=== PATIENT | male | born 1950 | race Caucasian/White ===

== ENCOUNTER 2021-06-25 07:36 | Outpatient (CLI) | payer OTHER, SELFPAY ==
--- NOTE | 2021-06-25 09:26 | ONC CON_ITS ---
Dr. Gonsales New Patient Note Patient: Darian Betancourt Unit #: [id number]: 1950 Dicatated By: Darrel Gonsales M.D.Date of Visit: Jun 25, 2021 Onc MED New Patient/Consult Referring Physician: Duncan Landin Chief Complaint: Lung cancer. 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 He has been in good general health. [facility] In February 2021 had been found on screening chest CT to have a right middle lobe lung mass. That particular report is not available to me at this time. His further evaluation with PET/CT on 03/25/2021 showed an FDG avid nodule in the middle lobe of the right lung measuring 9.8 mm, SUV 4.9, consistent with primary lung malignancy. Additional nodules in the left lower lobe measuring 4.7 mm and 7.3 mm had minor FDG activity. There was no mediastinal or hilar adenopathy noted. There was evidence of emphysema. He was noted to have multinodular goiter with mild FDG activity within a right thyroid nodule. The prostate was noted to be enlarged, measuring 4.9 x 5.4 cm. There were no other abnormal findings. On 04/04/[address]-guided biopsy of the right middle lobe nodule. The procedure was complicated by pneumothorax, requiring temporary placement of a pleural drainage catheter. 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 By IHC the tumor cells were positive for CAM 5.2, CK7, TTF-1, and synaptophysin. They were negative for NKX3.1. He is seen here now for further management of the lung cancer, as he had opted not to [facility]. He has been feeling good generally. He has good energy and has good activity tolerance for 4 to 5 hours. ECOG score is 1. His appetite is good. He had significant weight loss when he started the keto diet for the diabetes. He lost from 230 pounds to as low as 180 pounds, but he is now regained about 10 of that. He does not have fever or night sweats. He has just occasional cough. He says his breathing is good. He does not complain of shortness of breath, and he has not had chest pain or hemoptysis. He has no GI/ complaints other than his bowels tend to be a little slow. He has no significant joint or bone pain. He does not complain of headache or dizziness, and he has no focal neurologic symptoms. Past Medical History: He has type II diabetes, diet controlled, and he has CT evidence of COPD. Past Surgical History: He underwent CT guided biopsy of the right lung on 04/04/2021. His other surgical/procedural history has been limited to excision of sebaceous cysts. Medications: A Thru Z Advanced Adult 1 Tablet Oral daily, Cholecalciferol 1 Tablet (of 125 mcg ) Capsule Oral daily, Cinnamon 4 (500 mg) Capsule Oral daily, Fish Oil Extra Strength 1 Tablet (of 2200 mg) Capsule Oral daily, Selenium 1 Tablet (of 200 mcg) Capsule Oral daily, Vitamin C 1 Tablet (of 500 mg) Capsule Oral daily, Vitamin E 1 Tablet (of 200 Unit(s)) Oral daily, Zinc 1 Tablet (of 50 mg) Oral daily Allergies: No Known Allergies. Social History: Mr. Betancourt is . 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 He has a history of smoking for 33 years up to a maximum of 3 packs of cigarettes daily. He quit smoking cigarettes in 1997. He started smoking a pipe 2 or 3 years later. He had at least moderate to heavy alcohol use while he was in the [employer]. He cut down alcohol use around 1988. He currently does not drink any alcohol. 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 Family History: Father at 95 of old age. Mother of colon cancer at age 86. She also had diabetes. A brother of lung cancer at age 63. Two sisters are still living. A maternal aunt had breast cancer and his paternal grandfather had throat cancer. Review Of Symptoms: Constitutional - He has pretty good energy and he has good activity tolerance for 4 to 5 hours. He has good appetite. He had significant weight loss when he went on a keto diet for his diabetes. His weight dropped from 235 pounds to as low as 180 pounds, but he has regained about 10 of that. He does not have fever or night sweats. ECOG score is 1, Eyes - No change in vision, ENMT - He has hearing loss and tinnitus. He has chronic sinus drainage. No mouth sores. No sore throat or difficulty swallowing, Hematologic/Lymphatic - Recently has been bruising easily, Respiratory - He does not complain of shortness of breath, but he does have cough occasionally. No pleuritic pain or hemoptysis, Cardiovascular - No angina pain. No palpitations, Gastrointestinal - No nausea or vomiting. No heartburn or acid reflux. No diarrhea or constipation. No blood in the stool or black stools, Genitourinary (M) - No dysuria or hematuria. No urinary frequency. No urgency or incontinence, Musculoskeletal - No joint or bone pain, Integumentary - No skin rash or other skin changes, Neurologic - No headache or dizziness. No numbness or tingling. No other focal neurologic symptoms, Psychiatric - No anxiety or depression. No insomnia. Vital Signs: Performed on Jun 25, 2021 08:32: 0, 0, 23.52, 2.18 sq.m, 76 in, 96 %, 56 /min (LOW), 18 /min, 111/66 mm(hg), 98.6 F, and 193.2 lbs (HIGH). Physical Examination: Constitutional - He looks good generally, Eyes - Sclerae nonicteric. Conjunctivae clear, ENMT - No lesions noted in the oral cavity, Neck - No mass or thyromegaly, Hematologic/Lymphatic - No cervical, clavicular, or axillary adenopathy, Respiratory - Lungs are clear with slightly diminished air movement bilaterally, Cardiovascular - Heart rhythm is regular. There is no murmur, gallop, or rub noted, Abdomen - Soft and non-tender. Liver and spleen are not enlarged. There is no abdominal mass or ascites noted and there is no inguinal adenopathy, Back/Spine - No spine or CVA tenderness noted, Extremities - No edema. He has good dorsalis pedis pulses bilaterally, Integumentary - No rashes. No suspicious skin lesions noted, Neurologic - No focal neurologic deficits noted. Problem List: 1. Non-small cell carcinoma (large cell neuroendocrine carcinoma) involving the middle lobe of the right lung. By clinical evaluation his disease appears to be stage IA (T1a, N0, M0). 2. Type 2 diabetes, diet controlled. 3. He has CT evidence of COPD. 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 He first had CT evidence of a right middle lobe pulmonary nodule in February 2021. The diagnosis was confirmed by CT directed biopsy on 04/04/2021. By PET/CT, his disease appears to be stage IA (T1a, N0, M0). As yet, he has not had any treatment. The PET/CT findings and pathology results reviewed with the patient. We discussed the clinical implications. He has non-small cell lung cancer which appears to be localized and potentially treatable with either surgery or SBRT. Given the interval from his diagnosis and with his staging PET/CT showing small pulmonary nodules in the left lung, I am going to repeat a diagnostic chest CT. If he still appears to have localized disease we can proceed then with definitive treatment. Signed By: Darrel Gonsales M.D. <<Signature on File>>
== END 2021-06-25 07:37 | disposition home or self-care (01) ==
PROVIDERS: PCP Family Medicine; Visit Provider Internal Medicine Hematology & Oncology
DX: C7A.8 Other malignant neuroendocrine tumors (principal); E11.9 Type 2 diabetes mellitus without complications; J44.9 Chronic obstructive pulmonary disease, unspecified; Z79.899 Other long term (current) drug therapy
CPT/HCPCS: 99205

== ENCOUNTER 2021-06-28 10:50 | Outpatient (CLI) | payer OTHER, SELFPAY ==
--- NOTE | 2021-06-28 | CT_ITS ---
WS: [id number] CT CHEST TECHNIQUE: Contrast enhanced CT of the chest with coronal and sagittal reformatted images. CLINICAL INFORMATION: MALIGNANT NEOPLASM COMPARISON: PET CT March 25, 2021 DLP: [id number] scans at [facility] use at least one of these dose optimization techniques: automated e xposure control; mA and/or kV adjustment per patient size (includes targeted exams where dose is matc hed to clinical indication); or iterative reconstruction. FINDINGS: PET/CT report not available. FDG avid nodule on the prior PET/CT in the right middle lobe laterally is stable in appearance. This does not appear changed compared to the prior examination. Today this measures approximately 8.8 x 8 .2 mm. Additional partially calcified nodule in the left lower lobe posteriorly also appears unchange d measuring 7.5 mm. This demonstrates low-grade uptake on the prior PET/CT. Additional noncalcified n odule superior segment left lower lobe posterior medially measures 6 mm also unchanged. Enlarged right hilar lymph node measuring 12 mm appears new. No anterior mediastinal or left hilar ly mphadenopathy. No subcarinal lymphadenopathy. Normal caliber thoracic aorta. Proximal main pulmonary arteries are normal. Heterogeneous right lower lobe thyroid nodule extending into the mediastinum measuring 2.3 CM. This i s unchanged. CT/CT chest w con* [id number] IMPRESSION: 1. Right middle lobe nodule appears unchanged since the prior PET/CT measuring 8.8 x 8.2 mm. 2. 2 additional smaller nodules left lower lobe also unchanged. 3. Enlarged right hilar lymph node measuring 12 mm is new from the PET/CT. No anterior mediastinal lymphadenopathy. 4. Moderate chronic emphysematous changes. 5. Heterogeneous right lower lobe thyroid nodule extending into the mediastinu m measuring 2.3 CM. This is unchanged.
[2021-06-28 12:02] LABS: Blood Urea Nitrogen 16 mg/dL (8-23); Glomerular Filtration Rate 83.4 mL/min (90-130)
[2021-06-28] MEDS: iohexol 300 mg/mL 100 mL Btl IV (12:03)
== END 2021-06-28 10:51 | disposition home or self-care (01) ==
PROVIDERS: PCP Family Medicine; Visit Provider Internal Medicine Medical Oncology
DX: C34.2 Malignant neoplasm of middle lobe, bronchus or lung (principal)
CPT/HCPCS: 71260; 82565; 84520; Q9967

== ENCOUNTER → 2021-07-17 10:56 | Outpatient (BNVA) | payer OTHER, SELFPAY | PROVIDERS: PCP Family Medicine; Visit Provider Thoracic Surgery (Cardiothoracic Vascular Surgery) | DX: Z20.822 Contact with and (suspected) exposure to COVID-19 (principal) | CPT/HCPCS: 87635 ==

== ENCOUNTER 2021-07-23 07:47 | Outpatient (CLI) | payer OTHER, SELFPAY ==
--- NOTE | 2021-07-23 13:18 | PFTS_ITS ---
Date of Study:07/23/21 Date of Dictation: 07/24/2021 MECHANICS: Postbronchodilator forced vital capacity (FVC) is normal. Postbronchodilator forced expiratory volume in one second (FEV1) is moderately reduced. Postbronchodilator FEV1 2.83 L FEV1/FVC is reduced. There is significant response to bronchodilator. FLOW VOLUME LOOP: Scooping of expiratory limb suggestive of airway obstruction . LUNG VOLUMES: Total lung capacity (TLC) is normal. Residual volume (RV) is normal. DIFFUSING CAPACITY FOR CARBON MONOXIDE: Mildly reduced 76% . INTERPRETATION: The pulmonary function tests are consistent with moderate obstructive ventilatory disease with postbronchodilator FEV1 2.83 L. There is significant bronchodilator response. Lung volumes are normal. There is mild gas transfer defect. Clinical correlation recommended. [facility]
== END 2021-07-23 07:48 | disposition home or self-care (01) ==
LOC: RT 07:51
PROVIDERS: PCP Family Medicine; Visit Provider Thoracic Surgery (Cardiothoracic Vascular Surgery)
DX: J43.2 Centrilobular emphysema (principal)
CPT/HCPCS: 94060; 94726; 94729

== ENCOUNTER → 2021-08-07 08:40 | Outpatient (BNVA) | payer OTHER, SELFPAY | PROVIDERS: PCP Family Medicine; Visit Provider Thoracic Surgery (Cardiothoracic Vascular Surgery) | DX: Z20.822 Contact with and (suspected) exposure to COVID-19 (principal); R91.8 Other nonspecific abnormal finding of lung field | CPT/HCPCS: 87635 ==

== ENCOUNTER 2021-08-12 16:55 | Inpatient (IN) | payer OTHER, MEDICARE, SELFPAY ==
--- NOTE | 2021-08-07 09:47 | ECG_ITS ---
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 Measurements Intervals [place] Rate: 54 P: 63 MD: 175 QRS: 62 QRSD: 85 T: 61 QT: 408 QTc: 389 Interpretive Statements SINUS BRADYCARDIA SEPTAL MYOCARDIAL INFARCTION , OF INDETERMINATE AGE [40+ ms Q WAVE IN V1/V2] No previous ECG available for comparison Electronically Signed On 08-07-2021 20:48:55 NUTRITION ASSOCIATE by Emily Jacobs M.D. [id number]
[2021-08-07 09:53] LABS: Add Urine Microscopic? NO; Charge for UA Resulting for Rev
[2021-08-07 10:21] LABS: Bilirubin Urine Neg (Negative); Blood Urine Neg (Negative); Glucose Urine UA Norm (Normal); Ketones Urine Negative (Negative); Leukocyte Esterase Urine Negative (Negative); Nitrate Urine Negative (Negative); Protein Urine Neg (Negative); Urine Appearance Clear (CLEAR); Urine Color Straw (Yellow); Urobilinogen Urine Norm (Negative); pH Urine 5 (5-7)
[2021-08-07 10:25] VITALS: BMI 23.5
[2021-08-07 10:32] LABS: Basophils # 0.1 10^3/uL (0.0-0.1); Eosinophils # 0.1 10^3/uL (0.0-0.8); Eosinophils % 2.1 %; Hematocrit 46.8 % (42.0-52.0); Hemoglobin 15.3 g/dL (11.7-16.6); Lymphocytes # 1.6 10^3/uL (0.8-4.8); Lymphocytes % 27.4 %; Mean Corpuscular HGB Conc 32.7 g/dL (30.0-36.0); Mean Corpuscular Hemoglobin 28.4 pg (28.0-34.0); Mean Platelet Volume 9.7 fL (7.4-10.4); Monocytes # 0.4 10^3/uL (0.2-0.9); Monocytes % 7.6 %; Neutrophils # 3.54 10^3/uL (1.8-7.7); Neutrophils % 61.6 %; Nucleated Red Blood Cells % 0 %; Platelet Count 167 10^3/cmm (130-400); Red Blood Count 5.38 10^6/uL (4.1-5.3); Red Cell Distribution Width 12.9 % (12.1-15.1); White Blood Count 5.8 10^3/uL (4.0-10.0)
[2021-08-07 10:54] LABS: INR 1.02 (0.8-1.2)
[2021-08-07 10:58] LABS: Anion Gap 13.1 (5-19); Blood Urea Nitrogen 13 mg/dL (8-23); Calcium 9.3 mg/dL (8.5-10.5); Carbon Dioxide 27 mmol/L (22-29); Chloride 103 mmol/L (98-107); Glomerular Filtration Rate 111.5 mL/min (90-130); Glucose 100 mg/dL (65-115); Osmolality Calculated 288 mOsm/kg (285-295); Potassium 4.1 mmol/L (3.5-5.1); Sodium 139 mmol/L (136-145)
--- NOTE | 2021-08-07 11:00 | ANES.PREANE2 ---
Pre-Anesthetic Assessment Pre-Anesthetic Assessment: Height/Weight: Height 1.93 m Weight 87.543 kg Preop Diagnosis: Large cell neuroendocrine caricinoma Proposed Procedure: Operation Date: 08/12/21 11:10 Proposed Procedures p Lobectomy(Right) - Elian Ochoa MD Familial anesthetic complications: None (has had spinals only) Social: Social History: Tobacco (pipe) and No alcohol Exam: Pre-Anes Outpt Exam: alert, oriented x 3, clear to auscultation bilaterally and regular rate & rhythm Airway: Cervical ROM: WNL MP: 3 Dentition: False Pulmonary: Pulmonary: COPD Comments: lung cancer CV/HEM: Comments: runs 2.5 miles a day Metabolic: Metabolic: DM (diet controlled, now no longer has it) Anesthetic Plan: ASA status: 3 Anesthesia: General Other: a line + epidural Risk of > 500 ml blood loss (7ml/kg in children): No PFSH Anesthesia PFSH: Social History Alcohol intake: former service: Yes status: 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[employer] 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, 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 Current gender identity: Male Data Anesthesia CBC & Chem 7: 08/07/21 10:00 08/07/21 10:00 Other Labs: Laboratory Results - last 48 hr 08/07/21 08/07/21 08/07/21 09:05 10:00 10:00 WBC 5.8 RBC 5.38 H Hgb 15.3 Hct 46.8 MCV 87.0 MCH 28.4 MCHC 32.7 RDW 12.9 Plt Count 167 MPV 9.7 Neut % (Auto) 61.6 Lymph % (Auto) 27.4 Powell % (Auto) 7.6 Eos % (Auto) 2.1 Baso % (Auto) 1.0 Neut # (Auto) 3.54 Lymph # (Auto) 1.6 Powell # (Auto) 0.4 Eos # (Auto) 0.1 Baso # (Auto) 0.1 Nucleated RBC % (auto) 0 Nucleated RBCs # 0.0 PT 13.70 INR 1.02 Sodium Potassium Chloride Carbon Dioxide Anion Gap BUN Creatinine GFR Calculation Glucose Calculated Osmolality Calcium Urine Color Straw Urine Appearance Clear Urine pH 5 Ur Specific Bangs 1.010 Urine Protein Neg Urine Glucose (UA) Norm Urine Ketones Negative Urine Blood Neg Urine Nitrate Negative Urine Bilirubin Neg Urine Urobilinogen Norm Ur Leukocyte Esterase Negative 08/07/21 10:00 WBC RBC Hgb Hct MCV MCH MCHC RDW Plt Count MPV Neut % (Auto) Lymph % (Auto) Powell % (Auto) Eos % (Auto) Baso % (Auto) Neut # (Auto) Lymph # (Auto) Powell # (Auto) Eos # (Auto) Baso # (Auto) Nucleated RBC % (auto) Nucleated RBCs # PT INR Sodium 139 Potassium 4.1 Chloride 103 Carbon Dioxide 27 Anion Gap 13.1 BUN 13 Creatinine 0.7 GFR Calculation 111.5 Glucose 100 Calculated Osmolality 288 Calcium 9.3 Urine Color Urine Appearance Urine pH Ur Specific Bangs Urine Protein Urine Glucose (UA) Urine Ketones Urine Blood Urine Nitrate Urine Bilirubin Urine Urobilinogen Ur Leukocyte Esterase Cardiac Studies: No Data to Display
[2021-08-12] VITALS (28 sets, daily range): BP systolic 101–152; BP diastolic 48–88; PULSE 57–106; RESP 14–25; TEMP 36.4–36.6; O2SAT 94–100; BMI 22.4
[2021-08-12] MEDS: sodium chloride 0.9% 1,000 ML 30 ML IV (08:35)
--- NOTE | 2021-08-12 10:33 | P.ANESUD_ITS ---
Pre-Anesthetic Update Pre-Anesthetic Assessment: Date of Surgery/Procedure: 08/12/21 Preop Felisha gnosis: Right middle lobe non-small cell lung cancer Proposed Procedure: Operation Date: 08/12/21 10:10 Proposed Procedures p Lobectomy(Right) - Elian Ochoa MD Any changes to Pre-Anesthetic Assessment?: No Last Intake: Intake Last Liquid Date 08/11/21 Last Liquid Time 21:00 Last Solid Date 08/11/21 Last Solid Time 17:00 Labs Last 48hrs: Laboratory Results - last 48 hr 08/07/21 10:00 Blood Type A Positive Rho(D) Type Positive Antibody Screen Negative Crossmatch See Detail Vitals: Temperature 97.9 F 08/12/21 08:16 Temperature Source Temporal Artery S can 08/12/21 08:16 Pulse Rate 57 L 08/12/21 08:16 Pulse Rhythm 08/12/21 08:16 Pulse Strength 3+ Normal 08/12/21 08:16 Respiratory Rate 18 08/12/21 08:16 Blood Pressure 119/75 08/12/21 08:16 Blood Pressure Tasha n 89 08/12/21 08:16 Pulse Oximetry 97 08/12/21 08:16 Oxygen Delivery Me thod 08/12/21 08:16 Exam: Pre-Anes Outpt Exam: alert, oriented x 3, clear to auscultation bilaterally and regular rate & rhythm Cardiac Studies: No Data to Display
--- NOTE | 2021-08-12 10:42 | W.PM.OPSUD ---
Surgery/Procedure H&P Update DATE OF PROCEDURE: August 12, 2021 DATE H&P PERFORMED: 08/01/21 H&P UPDATE INFORMATION: I have reviewed H&P completed within last 30 days, I have examined patient prior to procedure and No changes to prior documentation PREOP DIAGNOSIS: Right middle lobe non-small cell lung cancer PLANNED PROCEDURE: Operation Date: 08/12/21 10:10 Proposed Procedures p Lobectomy(Right) - Elian Ochoa MD
[2021-08-12] MEDS: ceFAZolin 1,000 mg SDV 2000 MG IRRIGATION (13:11)
[2021-08-12] MEDS: ceFAZolin 1,000 mg SDV 2000 MG IVP (16:26)
--- NOTE | 2021-08-12 17:02 | XR_ITS ---
WS: [id number] Exam: XR chest 1V portable [id number] Date/Time of Exam: 08/12/2021 5:06 PM Reason For Exam: chest tube placement There are 2 right-sided chest tubes in place. Both end in the upper right pleural cavity. The right l eva is fully expanded. Surgical skin clips seen across the right chest. Cardiomediastinal silhouette is unremarkable. The left lung is fully inflated. No consolidating infiltrates. Minimal subcutaneous emphysema along the right rib cage. Recent appearing slightly displaced right sixth rib fracture. The re is coarsening of interstitial markings throughout both lungs that may represent chronic change. A length of opaque wire superimposes the upper left chest. Significance is undetermined. XR/XR chest 1V portable [id number] IMPRESSION: 1. 2 right-sided chest tubes in place both ending in the upper right pleural ca vity. No pneumothorax is demonstrated. Very small amount of subcutaneous emphys jazmin along the right rib cage. 2. Minimally displaced right sixth rib fracture. 3. Coarsening of interstitial markings noted bilaterally which may represent ch ronic change. No acute consolidating infiltrates are seen.
--- NOTE | 2021-08-12 17:38 | PM.OP ---
Operative Report Date of procedure: August 12, 2021 Pre-op Diagnosis: Right middle lobe non-small cell lung cancer Post-op diagnosis: same Procedure Done: Muscle-sparing right posterior lateral thoracotomy incision with right middle lobectomy Specimens removed/disposition: 1. Right middle lobe 2. Prominent enlarged right hilar lymph node 3.. Right posterior mediastinal right paraesophageal lymph node Anesthesia: General Estimated blood loss (mL): 200 Complications: None Condition: stable Disposition: ICU Brief History: 71-year-old gentleman with biopsy-proven non-small cell carcinoma right middle lobe now noted with increased 12 mm right hilar lymph node which was not noted previously. Given the interval from the original procedure and diagnosis to now, Dr. Gonsales felt that direct biopsy of this lymph node would be indicated to assist with management. Details of risk the procedure was rationale was carefully discussed with Mr. Betancourt. Appropriate consents have been reviewed and signed. Procedure: Thoracic epidural catheter was placed prior to entering the surgical suite. Mr. Betancourt underwent general endotracheal anesthesia with double-lumen endotracheal tube placed. Appropriate invasive lines were placed. The was placed in the left lateral decubitus position over axillary roll and protective padding. Is entire right chest was sterilely prepped and draped. A muscle-sparing limited right thoracotomy incision was made with cautery used to control bleeding. Latissimus muscle was divided. The anterior serratus muscle was retracted but not divided. The fifth intercostal space was entered. Moist laparotomy pads and the Finochietto retractor were placed. The chest was carefully opened. Right middle lobe lobe mass could be palpated. The pleura was opened circumferentially around the hilum. Hilar dissection was initiated anteriorly and superiorly. To between the right upper and middle lobe was completed utilizing automated stapler with securing strips. Fissure between middle lobe and lower lobe was divided using automated stapler. Pulmonary artery branches to the middle lobe were taken down and ligated. Proximal to the right middle lobe was carefully isolated, stapled, transected, and the bronchial stump oversewn. Of any arterial and venous branches were also isolated and secured. There was a very prominent hilar node as previously noted on most recent CT scan which was worrisome as it had not been present previously the time of his original screening and diagnosis. This lymph node was carefully dissected free off of the pulmonary artery with a small rent which was repaired with 4-0 Prolene suture. Specimen was collected and sent separately to pathology for permanent analysis. We then utilized the stapler to complete the fissure between the middle lobe and lower lobe. This allowed us to then remove the middle lobe with its associated easily palpable nodule. I placed adore along the parenchyma to allow for easier identification by our pathology colleagues. Not substantial adenopathy noted though sampling was performed along the paraesophageal region and was sent as a separate specimen as well. The entire chest was irrigated with large amounts of antibiotic solution. Right upper and lower lobes were reinflated easily. 1 area of air leak noted at the posterior aspect of the completed fissure between the middle lobe and upper lobe was initially oversewn and then separately oversewn again with felt and with the application of progel which helped control this leak. 28 [place] drain drains was placed over the diaphragm and out to the apex. These were connected to Pleur-evac suction. Retractor and sponges were removed. Sponge and needle count was correct. Chest wall was reapproximated with interrupted #1 Vicryl suture. There was a noted fracture of the sixth rib. Intercostal block with quarter percent Marcaine was then performed across the incision. The fascia was closed with running 0 Vicryl suture. The subcutaneous layer was closed with 2-0 Vicryl suture. Skin was reapproximated with surgical adore. Sterile dressing was applied. Patient was returned to the supine position and awakened from anesthesia. He was extubated. He was then transferred to the ICU. Family nursing service has been in contact with his daughter, who resides in [place]. Chest x-ray obtained in the operating room suite reveals good lung expansion without substantial infiltrates or fluid collections. He does have a modest air leak.
--- NOTE | 2021-08-12 17:42 | ANES.PROC ---
Anesthesia Procedures Procedure/Date: 08/12/21 Epidural: Time Out Performed: Yes Consents Signed: Procedure Consent Consent: requested by attending/covering physician, from patient, risks and benefits reviewed and patient agrees to proceed Thoracic Level: T9-T10 Epidural position: sitting Epidural procedure: sterile prep of area, 1% lidocaine to numb the area, 18 g needle, neg for paresthesia, test dose given, 1.5% xylocaine 1:200k epi, 0.2% Ropivacaine bolus ml, no systemic response, sterile dressing applied and 0.2% Ropiavacaine @ mls/hr (6) Additional Comments: AGATHA at 5cm, cath at 10cm
--- NOTE | 2021-08-12 17:43 | ANE.PACU2 ---
Inpatient post-anesthesia follow up: Airway intact: Yes Vital signs: Temperature 97.9 F Pulse Rate 57 Respiratory Rate 18 Blood Pressure 119/75 Pulse Oximetry 97 Oxygen Delivery Me thod Room Air Oxygen Flow Rate Fraction of Inspir ed Oxygen Hydration adequate: Yes Nausea and vomiting: No Pain level: 1 Additional Comments: Sedated to ICU, extubated, thoracic epidural appears to be working well
--- NOTE | 2021-08-12 17:47 | PC.NURSE ---
To ICU via bed at 1725, accompanied by OR staff and Dr. Ochoa. Patient sedated, sonorous respirations, chest tubes to suction without leaks. VSS, Epidural intact and working.
[2021-08-12] MEDS: morphine 4 mg/mL SDV 1 mL 2 MG IVP ×2 (18:11→19:30)
[2021-08-12] MEDS: lactated ringers 1,000 ML 100 ML IV (18:20)
[2021-08-13] VITALS (179 sets, daily range): BP systolic 71–122; BP diastolic 40–74; PULSE 62–98; RESP 12–27; TEMP 36.9–37.6; O2SAT 93–100
[2021-08-13] MEDS: ketorolac 30 mg/mL INJ IVP ×2 (05:14→20:45)
[2021-08-13] MEDS: lactated ringers 1,000 ML 100 ML IV ×2 (05:24→16:10)
--- NOTE | 2021-08-13 06:00 | XRR_ITS ---
PROCEDURE INFORMATION: Exam: XR Chest Exam date and time: 08/13/2021 6:00 AM Age: 71 years old Clinical indication: Dyspnea; Prior surgery; Surgery date: 3-7 days post-operative; Additional info: Pod #1 status post right middle lobectomy TECHNIQUE: Imaging protocol: XR of the chest. Views: 1 view. Total images: 1 COMPARISON: CR XR chest 1V portable [id number] 08/12/2021 5:11 PM FINDINGS: Tubes, catheters and devices: Two right-sided chest tubes unchanged in position. Lungs: Stable right pleuroparenchymal disease. Pleural spaces: No pneumothorax. Heart/Mediastinum: Unremarkable. No cardiomegaly. Bones/joints: Osseous structures are unchanged from the prior exam. Other findings: Stable postsurgical changes. XR/XR chest 1V portable [id number] IMPRESSION: Stable right pleuroparenchymal disease. Radiation Dose CTDIVOL = (mGy): DLP = (mGy-cm)
[2021-08-13 06:02] LABS: Basophils % 0.2 %; Hematocrit 31.9 % (42.0-52.0); Hemoglobin 10.4 g/dL (11.7-16.6); Lymphocytes # 0.9 10^3/uL (0.8-4.8); Lymphocytes % 9.7 %; Mean Corpuscular HGB Conc 32.6 g/dL (30.0-36.0); Mean Corpuscular Hemoglobin 28.7 pg (28.0-34.0); Mean Corpuscular Volume 87.9 fl (80-94); Mean Platelet Volume 10.1 fL (7.4-10.4); Neutrophils # 7.67 10^3/uL (1.8-7.7); Neutrophils % 79.7 %; Nucleated Red Blood Cells % 0 %; Platelet Count 130 10^3/cmm (130-400); Red Blood Count 3.63 10^6/uL (4.1-5.3); Red Cell Distribution Width 12.7 % (12.1-15.1); White Blood Count 9.6 10^3/uL (4.0-10.0)
--- NOTE | 2021-08-13 06:05 | PM.PN ---
Subjective Subjective: Interval history: Postop day #1 status post right middle lobectomy. Looks quite good this morning. In very good spirits. Modest air leak noted. Chest tube output has been 550 cc since surgery, 300 cc over the weight shifter. Hemoglobin 10.4 this morning. Vital signs are stable. Afebrile. Epidural catheter appears to be working quite well. Chemistries are still pending this morning. Chest x-ray remains clear. There is a small apical. I do note there were adhesions in the apex that had to be taken down with cautery and I suspect this is some bleeding from the apical wall. No substantial infiltrates or effusions noted. Vitals/I&O/Wt Last Vital Signs Temp 98.7 F 08/13/21 04:00 Pulse 70 08/13/21 04:00 Resp 14 08/13/21 04:00 BP 117/51 08/13/21 04:00 Pulse Ox 98 08/13/21 00:00 08/12/21 08/12/21 08/13/21 14:59 22:59 06:59 Intake Total 60 / 60 1160 / 1220 Output Total 1000 / 1000 750 / 1750 Balance 60 / 60 -1000 / -940 410 / -530 Weight last 48 hrs Weight 190 lb 2 oz Weight 184 lb 9 oz Physical Exam Resp: COMMON NORMALS: No use of accessory muscles and clear to auscultation bilaterally AUSCULTATION: clear to auscultation bilaterally OTHER: Fairly good inspiratory effort given this early since surgery. We do note a 6th rib fracture during thoracotomy. Cardio: COMMON NORMALS: regular rate, regular rhythm and S1 normal heart sound present RATE: regular rate RHYTHM: regular rhythm HEART SOUNDS: S1 normal heart sound present Extremity: COMMON NORMALS: no clubbing, cyanosis or edema Urinary Catheter Management^: Seymour Latex: Cath Placed During This Visit: yes Reason for Continuing Indwelling Catheter: Accurate Measurement of Urinary Output in Critically Ill Patients Urinary Catheter Date of Insertion: 08/12/21 Urinary Catheter Time of Insertion: 12:50 Data : 08/13/21 04:28 08/07/21 10:00 A&P Assessment and plan (1) Status post lobectomy of lung: POD #1 status post right middle lobectomy Plan: DC arterial line. Out of bed in chair. Pulmonary toilet with incentive spirometry ineffective coughing CBC, BMP, chest x-ray in a.m. Status: Acute Attestations Medical Necessity Statement*: Postop day #1 status post right middle lobectomy Time Spent in Patient Care: 16 - 35 minutes Coding Level of Care Code Acute Lead Clinical Research Coordinator for Chg Fwd Diagnoses Status post lobectomy of lung Z90.2
--- NOTE | 2021-08-13 06:33 | PC.NURSE ---
Chest tube output:360ml sanguineous for this shift, pain controlled with PRNs. Arterial line pulled this AM, no complications or excessive bleeding. Patient up to chair this AM, VSS, no signs of distress at this time.
[2021-08-13 06:34] LABS: Anion Gap 15.6 (5-19); Blood Urea Nitrogen 9 mg/dL (8-23); Calcium 6.9 mg/dL (8.5-10.5); Carbon Dioxide 19 mmol/L (22-29); Chloride 107 mmol/L (98-107); Glomerular Filtration Rate 164.4 mL/min (90-130); Glucose 113 mg/dL (65-115); Osmolality Calculated 285 mOsm/kg (285-295); Potassium 3.6 mmol/L (3.5-5.1); Sodium 138 mmol/L (136-145)
--- NOTE | 2021-08-13 08:23 | P.ANESPOST_ITS ---
Inpatient post-anesthesia follow up: Airway intact: Yes Vital signs: Temperature 98.7 F Pulse Rate 74 Respiratory Rate 21 Blood Pressure 108/60 Pulse Oximetry 96 Oxygen Delivery Me thod Nasal Cannula Oxygen Flow Rate 2 Fraction of Inspir ed Oxygen Hydration adequate: Yes Nausea and vomiting: No Pain level: 2 Mental status: Baseline Additional Comments: POD #1, up in chair eating breakfast, pain control adequate--no change encouraged HOUSEKEEPING AND LAUNDRY TEAM LEADER use.
[2021-08-13] MEDS: pantoprazole DR 40 mg Tablet PO (10:35)
[2021-08-13] MEDS: midazolam 1 mg/mL INJ 2 mL IVP (12:42)
--- NOTE | 2021-08-13 19:13 | PC.NURSE ---
Late note: At approximately 1230, patient was eating lunch and developed a partial airway obstruction. Still saturating in the mid 90%s and able to ventilate adequately, but he can feel food stuck in his throat, is dry heaving, and occasionally cpitting up large amounts of mucus with food mixed in. Per Dr Perales, nurse administered versed and glucagon (see mar), and reassured patient. Explained that since he is able to move air and is saturating well we will not make any major changes and see if the medications will help relax his airway and clear the obstruction. Patietn was about to clear obstruction about 10 minutes after administration of meds.
--- NOTE | 2021-08-13 19:17 | PC.NURSE ---
SHift summary: besides partial airway obstruction (see previous notes), Shift was uneventful Patient was up to a chair for about 6 hours of the day, and back to bed for the remaining 6 hours of the shift. Urine output for shift was 350mL, and appears to be increasing as most of the output occurred in the later half of the shift. Urine color, initially brown, has improved. Is now a clear orange. Total drainage form chest tube for day shift 08/13/2021 was 110mL and sanguineous. Chest tube insertion side dressings and thoracotomy dressings are clean an intact. No redness, drainage or excessive warmth noted. Tracheotomy incision has swelling above it, nurse alerted Dr Cho and marked boundaries of swelling with marker to track progress throughout stay.
--- NOTE | 2021-08-13 19:44 | PC.NURSE ---
Nurse's Note: Pt alert and oriented x4, moves all extremities and follows commands. Chest tube site C/D/I--tubes to DD(atrium). Small airleak noted in chesttube/Dr. rivas per dayshift. All vs and assessments as charted. Pt c/o right side pain @ 6/10. Reminded pt that epidural in place/educated on when to push button for pain medication. Pt currently resting with eyes closed; 02 on @ 0.5L per NC. No distress noted at this time. Will continue to monitor.
[2021-08-14] VITALS (53 sets, daily range): BP systolic 92–132; BP diastolic 51–80; PULSE 69–98; RESP 12–29; TEMP 36.7–37.4; O2SAT 88–99
[2021-08-14] MEDS: lactated ringers 1,000 ML 100 ML IV (02:23)
[2021-08-14 04:27] LABS: Basophils % 0.4 %; Eosinophils # 0.1 10^3/uL (0.0-0.8); Eosinophils % 0.7 %; Hematocrit 34.6 % (42.0-52.0); Hemoglobin 10.8 g/dL (11.7-16.6); Lymphocytes # 1.2 10^3/uL (0.8-4.8); Lymphocytes % 13.2 %; Mean Corpuscular HGB Conc 31.2 g/dL (30.0-36.0); Mean Corpuscular Hemoglobin 28.1 pg (28.0-34.0); Mean Corpuscular Volume 89.9 fl (80-94); Mean Platelet Volume 10.3 fL (7.4-10.4); Monocytes # 1.1 10^3/uL (0.2-0.9); Neutrophils # 6.72 10^3/uL (1.8-7.7); Neutrophils % 73.5 %; Nucleated Red Blood Cells % 0 %; Platelet Count 140 10^3/cmm (130-400); Red Blood Count 3.85 10^6/uL (4.1-5.3); Red Cell Distribution Width 12.7 % (12.1-15.1); White Blood Count 9.2 10^3/uL (4.0-10.0)
[2021-08-14 05:09] LABS: Anion Gap 15.9 (5-19); Blood Urea Nitrogen 16 mg/dL (8-23); Carbon Dioxide 23 mmol/L (22-29); Chloride 104 mmol/L (98-107); Glomerular Filtration Rate 95.6 mL/min (90-130); Glucose 137 mg/dL (65-115); Osmolality Calculated 291 mOsm/kg (285-295); Potassium 3.9 mmol/L (3.5-5.1); Sodium 139 mmol/L (136-145)
--- NOTE | 2021-08-14 06:00 | XR_ITS ---
WS: [id number] Exam: XR chest 1V portable [id number] Date/Time of Exam: 08/14/2021 5:27 AM Reason For Exam: POD #2 status post right middle lobectomy Comparison 08/13/2021. Probable tiny right apical pneumothorax noted. There are [address] on the right. They luis f th end in the upper right pleural cavity. Small amount of subcutaneous emphysema along the right uppe r rib cage. Left lung is clear and fully inflated. No consolidating infiltrates. No pleural effusions . Normal cardiomediastinal silhouette. Surgical skin clips along the lateral right chest. XR/XR chest 1V portable [id number] IMPRESSION: 1. Probable tiny right apical pneumothorax. This is estimated at less than 5%. 2. Otherwise stable postoperative changes of the right chest as detailed above. No other new finding.
[2021-08-14] MEDS: FUROsemide 10 mg/mL SDV 2mL 20 MG IVP (06:27)
--- NOTE | 2021-08-14 06:42 | P.PN_ITS ---
Subjective Subjective: Interval history: POD #2 status post right middle lobectomy. Vital signs are stable. Chest tube output 130 cc past 12 hours. Intake and output is up about 2 L. Hemoglobin is stable. Chest x-ray remains relatively clear chest about is still fairly sanguinous though beginning to lighten up. Moderate bout of chest wall discomfort. Small intermittent moderate air leak which has not worsened and may be slightly improved. Vitals/I&O/Wt Last Vital Signs Temp 98.4 F 08/13/21 22:00 Pulse 76 08/14/21 06:00 Resp 21 H 08/14/21 06:00 BP 132/67 08/14/21 06:00 Pulse Ox 96 08/14/21 06:00 08/13/21 08/13/21 08/14/21 14:59 22:59 06:59 Intake Total 460 / 460 1510 / 1970 1100 / 3070 Output Total 360 / 380 400 / 780 Balance 440 / 440 1150 / 1590 700 / 2290 Weight last 48 hrs Weight 190 lb 2 oz Weight 184 lb 9 oz Physical Exam Chest: COMMONS NORMALS: normal inspection of the chest and normal palpation of entire chest wall OTHER: Chest wall is stable. Surgical dressings and drains remain in good position. Resp: COMMON NORMALS: No retractions and No use of accessory muscles EFFORT & INSPECTION: Yes able to speak in complete sentences OTHER: Basilar crackles. Cardio: COMMON NORMALS: regular rate, S1 normal heart sound present, No murmurs present (Cardio) and No rub (Cardio) RATE: regular rate HEART SOUNDS: S1 normal heart sound present Extremity: OTHER: Trace to 1+ peripheral edema Urinary Catheter Management^: Seymour Latex: Cath Placed During This Visit: yes Reason for Continuing Indwelling Catheter: Acute Urinary Retention or Obst ruction Urinary Catheter Date of Insertion: 08/12/21 Urinary Catheter Time of Insertion: 12:50 Data : 08/14/21 03:34 08/14/21 03:34 A&P Assessment and plan (1) Status post lobectomy of lung: POD #2 status post right middle lobectomy Plan: DC IV fluids/saline lock. Lasix 20 mg IV now Will reassess for possible transfer to [facility] later today. I will leave chest tube to suction for now and consider transitioning to waterseal either later this evening or perhaps tomorrow Status: Acute Attestations Medical Necessity Statement*: POD #2 status post right middle lobectomy. Pathology pending. Time Spent in Patient Care: less than 15 minutes Coding Level of Care Code Acute Tubular Riveter for Gerardog Fwrodrigo Diagnoses Status post lobectomy of lung Z90.2
--- NOTE | 2021-08-14 07:43 | PC.NURSE ---
Report received, pt resting in bed. AAOx4. VSS. CTx2 to R side. air leak noted and MD aware. Sanguinous output noted to both CT's. Container full on 1 side. Atrium changed per protocol. Tolerated well. Denies any needs. pain pump in use, pt reeducated on the use of pump. Seymour cath draining freely to BSD. Will monitor.
[2021-08-14] MEDS: pantoprazole DR 40 mg Tablet PO (08:06)
--- NOTE | 2021-08-14 08:41 | PC.NURSE ---
Report given to Alden ROQUE.
--- NOTE | 2021-08-14 09:02 | PC.CHAP ---
Pastoral Care Encounter/Spiritual Assessment Type of Contact [] Declined production operator visit [] Patient/Family/Request visit [] Outpatient visit [] Follow-up visit [] Physician referral [] Code/Alert [x] Routine visit [] Staff referral [] Actively dying [] Patient sleeping [] Family support [] [] Out of room [] Palliative care [] [] Receiving care in room [] Pre-surgical visit [] Trauma [] Long length of stay [x] ICU visit [] Other: Relational/Emotional Strength [] Patient feels connected with others/family/visitors/staff [] Distress [] Loneliness/isolation [] Abandonment Spirituality of Patient [x] Person of Rubia [] Attends Mosque of their [place] [] Believes in Prayer [] Reads Bible or Moravian materials [] There are Spiritual issues to be addressed Trust Accounts Supervisor Interventions [x] Prayer [x] Active listening [x] Non-anxious presence [x] Spiritual/emotional support [] Crisis/trauma care [] Spiritual counseling [] Bereavement support [] Provided bereavement packet [] Provided Bible/devotional materials [] Provided toy/stuffed animal, coloring book to patient or family member [] Provided Communion [] Anointing/[place] [] Salvation [x] Completed spiritual assessment [] Other: Impact on Illness or Injury [] Angry [] Fearful [] Anxious [] Often cries [] Exhaustion [] Unable to work [] Unable to attend mormonism [] Unable to walk/stand [] Unable to read [] Unable to drive [] Unable to eat/drink [] Unable to sleep [] Unable to be with family [] Patient intubated [] Other: Summary patient feeling somewhat better.. feels weak Time spent with patient 5 min
--- NOTE | 2021-08-14 09:15 | PC.NURSE ---
Took report back on pt from Alden ROQUE.
--- NOTE | 2021-08-14 09:45 | PC.NUTR ---
Nutrition note: Pt triggered for assessment based upon BMI < 23 in age > 65 years, however additional weights entered and BMI now > 23. Will assess at 5D LOS or as needed per further nutrition risk.
[2021-08-14] MEDS: ondansetron 2 mg/ML SDV 2 mL 4 MG IVP (11:14)
[2021-08-14] MEDS: morphine 4 mg/mL SDV 1 mL 2 MG IVP ×2 (11:18→14:58)
--- NOTE | 2021-08-14 11:33 | PC.NURSE ---
[facility], became nauseous during tx, given zofran 4mgIVP per PRN orders. No major dump from CT's. Dressing to lobectomy site rolling up on bottom edge. Pt c/o pain 8/10. Morphine given per orders for breakthrough severe pain. Pt used STANDPIPE TENDER pump prior to with no relief. Will monitor. 1137 Pt states pain 2/10 after morphine. No n/v at this time.
--- NOTE | 2021-08-14 14:39 | PM.MISC ---
Miscellaneous Note Purpose of Documentation: Up in chair on afternoon rounds. Intermittent moderate air leak persist. Right chest wall discomfort mildly improved. In good spirits. Good diuresis following Lasix. We will continue chest tube to suction. Will plan for transfer to [facility] tomorrow if bed available. Continue pulmonary toilet and analgesic control. 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 Prominent hilar lymph node was positive.
--- NOTE | 2021-08-14 14:44 | ANE.PACU2 ---
Inpatient post-anesthesia follow up: Airway intact: Yes Vital signs: Temperature 99.3 F Pulse Rate 82 Respiratory Rate 16 Blood Pressure 107/59 Pulse Oximetry 98 Oxygen Delivery Me thod Nasal Cannula Oxygen Flow Rate 1 Fraction of Inspir ed Oxygen Hydration adequate: Yes Nausea and vomiting: No Pain level: 2 Mental status: Baseline Additional Comments: POD#2, reasonable pain control, continued air leak
--- NOTE | 2021-08-14 15:07 | PC.NURSE ---
Dressing to lobectomy incision site changed per MD order. Painted with betadine and covered with 2 island dressings so as not to get adhesive directly on incision site. Pt tolerated well. Site without s/s of infection noted. Will monitor
--- NOTE | 2021-08-14 17:48 | PC.NURSE ---
Shift Note Frequent safety and comfort rounds continue. Orders and/or nursing care completed as indicated. Patient monitored for response to intervention and treatment(s). Education provided includes treatment plan, medications, CT safety, and pain management. Pt verbalizes understanding. Pt up in chair since before lunch, tolerated well. CT's to suction. Small air leak still present. No other issues noted. Pain pump in use. Pt understands proper use. VSS. Will continue to monitor.
[2021-08-14] MEDS: guaiFENesin 100 mg/5 mL UDC 10 mL 200 MG PO (17:59)
[2021-08-15] VITALS (42 sets, daily range): BP systolic 97–140; BP diastolic 49–74; PULSE 60–85; RESP 12–23; TEMP 36.6–37.3; O2SAT 89–97
[2021-08-15] MEDS: morphine 4 mg/mL SDV 1 mL 2 MG IVP (01:07)
[2021-08-15] MEDS: ketorolac 30 mg/mL INJ IVP (04:38)
[2021-08-15] MEDS: guaiFENesin 100 mg/5 mL UDC 10 mL 200 MG PO ×3 (04:38→18:27)
[2021-08-15 05:42] LABS: Basophils % 0.5 %; Eosinophils # 0.2 10^3/uL (0.0-0.8); Eosinophils % 2.9 %; Hemoglobin 9.8 g/dL (11.7-16.6); Lymphocytes # 1.4 10^3/uL (0.8-4.8); Lymphocytes % 17.7 %; Mean Corpuscular HGB Conc 32.7 g/dL (30.0-36.0); Mean Corpuscular Hemoglobin 28.7 pg (28.0-34.0); Mean Platelet Volume 10.2 fL (7.4-10.4); Monocytes # 0.8 10^3/uL (0.2-0.9); Monocytes % 10.1 %; Neutrophils % 68.3 %; Nucleated Red Blood Cells % 0 %; Platelet Count 146 10^3/cmm (130-400); Red Blood Count 3.41 10^6/uL (4.1-5.3); Red Cell Distribution Width 12.4 % (12.1-15.1); White Blood Count 7.6 10^3/uL (4.0-10.0)
--- NOTE | 2021-08-15 06:00 | XR_ITS ---
WS: [id number] Exam: XR chest 1V portable [id number] Date/Time of Exam: 08/15/2021 4:18 AM Reason For Exam: POD#3 s/p lobectomy Comparison 08/14/2021. The lungs remain fully expanded. 2 right-sided chest tubes are in place. One tube ends in the superio r right pleural cavity and the second along the lateral lower right pleural cavity. At least one righ t rib fracture is seen. Left lung is clear. Normal cardiomediastinal silhouette. Additional wires and leads superimpose the chest. Subcutaneous emphysema along the right neck and shoulder region. Mild p laque atelectasis in the right lower lung zone. XR/XR chest 1V portable [id number] IMPRESSION: 1. The right lung remains fully inflated. No pneumothorax is seen. 2 right ches t tubes in place as detailed above. Diffuse plaque atelectasis in the right low er lung zone. 2. No consolidating infiltrates or other significant finding.
[2021-08-15 06:03] LABS: Anion Gap 12.1 (5-19); Blood Urea Nitrogen 18 mg/dL (8-23); Calcium 8.1 mg/dL (8.5-10.5); Carbon Dioxide 28 mmol/L (22-29); Chloride 103 mmol/L (98-107); Glomerular Filtration Rate 111.5 mL/min (90-130); Glucose 121 mg/dL (65-115); Osmolality Calculated 291 mOsm/kg (285-295); Potassium 4.1 mmol/L (3.5-5.1); Sodium 139 mmol/L (136-145)
--- NOTE | 2021-08-15 06:31 | PM.PN ---
Subjective Subjective: Interval history: Postop day #3 status post right middle lobectomy. 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 The prominent lymph nodes noted on the most recent CT scan was in the positive for malignancy. He has done well overnight. Less chest wall discomfort. Chest x-ray is stable remains clear. Chest tube output just under 300 cc. He still has an air leak though this is slowly improving. Vitals/I&O/Wt Last Vital Signs Temp 98.1 F 08/14/21 21:59 Pulse 85 08/15/21 04:30 Resp 17 08/15/21 04:30 BP 115/63 08/15/21 04:30 Pulse Ox 94 08/15/21 04:30 08/14/21 08/14/21 08/15/21 14:59 22:59 06:59 Intake Total 1230 / 1230 480 / 1710 220 / 1930 Output Total 1185 / 1185 979 / 2164 1075 / 3239 Balance 45 / 45 -499 / -454 -855 / -1309 Physical Exam Chest: COMMONS NORMALS: normal inspection of the chest and normal palpation of entire chest wall OTHER: Support lines remain in position. Surgical dressing clean and dry. Chest wall is stable. No subcutaneous emphysema. Resp: COMMON NORMALS: normal respiratory effort and clear to auscultation bilaterally AUSCULTATION: clear to auscultation bilaterally Cardio: COMMON NORMALS: regular rate and regular rhythm RATE: regular rate RHYTHM: regular rhythm Urinary Catheter Management^: Seymour Latex: Cath Placed During This Visit: yes Reason for Continuing Indwelling Catheter: Acute Urinary Retention or Obstruction Urinary Catheter Date of Insertion: 08/12/21 Urinary Catheter Time of Insertion: 12:50 Data : 08/15/21 04:48 08/15/21 04:48 A&P Assessment and plan (1) Status post lobectomy of lung: Postop day #3 status post right middle lobectomy. Residual air leak though slowly improving. Plan: Continue chest tube to suction. Increase activities and pulmonary toilet. May ambulate off of suction. Will plan to transfer to [facility] later today. Status: Acute Attestations Medical Necessity Statement*: POD #3 status post right middle lobectomy Time Spent in Patient Care: less than 15 minutes Coding Level of Care Code Acute Medical Accounts Receivable Specialist for Chg Fwd Diagnoses Status post lobectomy of lung Z90.2
--- NOTE | 2021-08-15 07:17 | PC.NURSE ---
Report received, assessment completed as charted. Pt AAOx4, lying in bed. Denies any needs at this time. C/O some pain to R chest and upper back r/t lobectomy. Dressing c/d/i. Pain pump infusing per orders. CT x 2 to R lateral chest wall to suction. Light red sangeuinous output noted. Small air leak detected, MD aware. No other issues noted. Will monitor.
[2021-08-15] MEDS: ondansetron 2 mg/ML SDV 2 mL 4 MG IVP (07:28)
[2021-08-15] MEDS: pantoprazole DR 40 mg Tablet PO (08:01)
--- NOTE | 2021-08-15 08:32 | P.ANESPOST_ITS ---
Inpatient post-anesthesia follow up: Airway intact: Yes Vital signs: Temperature 98.1 F Pulse Rate 79 Respiratory Rate 21 Blood Pressure 106/56 Pulse Oximetry 90 Oxygen Delivery Me thod Room Air Oxygen Flow Rate 1 Fraction of Inspir ed Oxygen Hydration adequate: Yes Nausea and vomiting: No Pain level: 2 Mental status: Baseline Additional Comments: POD#3, up in chair doing well, encouraged RESIDENT CARE COORDINATOR use--pain seems worse at night, continue same
--- NOTE | 2021-08-15 09:33 | PC.SOCIAL ---
IMM updated IMM updated with patient. Verbalized an understanding. Copy Pg 2 provided. Initialled, dated, timed, and placed in chart.
--- NOTE | 2021-08-15 17:46 | PC.NURSE ---
Shift Note Frequent safety and comfort rounds continue. Orders and/or nursing care completed as indicated. Patient monitored for response to intervention and treatment(s). Education provided includes treatment plan, room change and CT safety. Pt verbalizes understanding. Pt up to BSC at this time attempting to have BM. No issues noted. Pain pump infusing per orders. VSS. Pt to transfer to med surg shortly after shift change d/t staffing requirements. Will continue to monitor.
--- NOTE | 2021-08-15 19:50 | PC.NURSE ---
Transferred via wheelchair to [facility] [id number]. Report given to MYA Walden.
[2021-08-16] VITALS (13 sets, daily range): BP systolic 116–129; BP diastolic 65–75; PULSE 68–89; RESP 16–18; TEMP 36.6–37.2; O2SAT 92–95
[2021-08-16] MEDS: guaiFENesin 100 mg/5 mL UDC 10 mL 200 MG PO ×3 (01:42→10:15)
--- NOTE | 2021-08-16 06:00 | XR_ITS ---
WS: [id number] Exam: XR chest 1V portable [id number] Date/Time of Exam: 08/16/2021 6:11 AM Reason For Exam: Postop day #4 status post right middle lobectomy Comparison 08/15/2021. Small right apical pneumothorax noted on today's study. This is estimated at 5%. 2 right-sided chest tubes remain in place unchanged in position. Prominent right pulmonary hilum which may be due to tech nique. Mild diffuse infiltrate in the right lower lung zone. Surgical clips along the right chest. Le ft lung is clear and fully expanded. Normal cardiomediastinal structures. XR/XR chest 1V portable [id number] IMPRESSION: 1. Small right upper lobe pneumothorax estimated at 5%. Small amount of subcuta neous emphysema along the right shoulder and right rib cage 2. There are 2 thoracostomy tubes in the right pleural cavity unchanged in posi tion. 3. Prominent right pulmonary hilum which may be due to portable technique. 4. Mild interstitial infiltrate in the right lower lung zone improved.
[2021-08-16] MEDS: docusate sodium 100 mg Capsule PO (06:49)
[2021-08-16] MEDS: bisacodyl 5 mg Tablet PO (09:29)
[2021-08-16] MEDS: pantoprazole DR 40 mg Tablet PO (09:29)
--- NOTE | 2021-08-16 09:52 | P.PN_ITS ---
Subjective Subjective: Interval history: Postop day #4 status post right middle lobectomy. Mr. Betancourt's thoracotomy discomfort is much improved. Good use of incentive spirometry. Chest tube output 330 cc past 24 hours. He has a small remaining air leak though this has steadily improved. Chest x-ray is quite clear. Vitals/I&O/Wt Last Vital Signs Temp 97.9 F 08/16/21 07:28 Pulse 68 08/16/21 07:28 Resp 17 08/16/21 07:28 BP 123/69 08/16/21 07:28 Pulse Ox 93 08/16/21 07:28 08/15/21 08/16/21 08/16/21 22:59 06:59 14:59 Intake Total 700 / 1280 600 / 1880 220 / 220 Output Total 475 / 475 510 / 985 100 / 100 Balance 225 / 805 90 / 895 120 / 120 Physical Exam Resp: COMMON NORMALS: normal respiratory effort, No retractions, No use of ac cessory muscles and clear to auscultation bilaterally EFFORT & INSPECTION: Yes able to speak in complete sentences and Yes symmetric chest movement AUSCULTATION: clear to auscultation bilaterally Cardio: COMMON NORMALS: regular rate, regular rhythm, S1 normal heart sound present and No rub (Cardio) RATE: regular rate RHYTHM: regular rhythm HEART SOUNDS: S1 normal heart sound present Extremity: COMMON NORMALS: no clubbing, cyanosis or edema Urinary Catheter Management^: Seymour Latex: Cath Placed During This Visit: yes, but has since been removed by the nurse Reason for Continuing Indwelling Catheter: Decision to DC Catheter Urinary Catheter Date of Insertion: 08/12/21 Urinary Catheter Time of Insertion: 12:50 Date Urinary Catheter Removed: 08/15/21 Time Urinary Catheter Discontinued: 17:45 Data : 08/15/21 04:48 08/15/21 04:48 A&P Assessment and plan (1) Status post lobectomy of lung: Postop day #4 status post right middle lobectomy. Pathology returned squamous cell carcinoma nonkeratinizing. Plan: I will place chest tubes to waterseal. I believe the more dependent tube may be removed either later today or tomorrow as we observe for any further air leak while on waterseal. I ordered a chest x-ray for tomorrow morning. His epidural catheter remains in position and appears to be functioning well. Dr. Landin has been gracious enough to assume attending duties for Mr. Betancourt as I will be off service. Mr. Betancourt where. Dr. Landin has cared for him previously. At his current recovery rate I believe that the chest tube will probably be able to be removed in the next couple of days completely, hopefully with the first 2 being removed later today or tomorrow pending his evaluation for air leak while on waterseal. I greatly appreciate Dr. Landin's assistance and expertise. Status: Acute Attestations Medical Necessity Statement*: Status post right middle lobectomy for squamous cell carcinoma. Time Spent in Patient Care: 16 - 35 minutes Coding Level of Care Code Acute Technical Stenographer for g Fwrodrigo Diagnoses Status post lobectomy of lung Z90.2
--- NOTE | 2021-08-16 13:27 | PC.CHAP ---
Pastoral Care Encounter/Spiritual Assessment Type of Contact [] Declined bariatric physician visit [] Patient/Family/Request visit [] Outpatient visit [XX] Follow-up visit [] Physician referral [] Code/Alert [XX] Routine visit [] Staff referral [] Actively dying [] Patient sleeping [] Family support [] [] Out of room [] Palliative care [] [] Receiving care in room [] Pre-surgical visit [] Trauma [XX] Long length of stay [] ICU visit [] Other: Relational/Emotional Strength [XX] Patient feels connected with others/family/visitors/staff [] Distress [] Loneliness/isolation [] Abandonment Spirituality of Patient [XX] Person of Rub[place] [] Attends Yazidi of their [place] [XX] Believes in Prayer [] Reads Bible or Gnosticist materials [] There are Spiritual issues to be addressed Chart Reader Interventions [XX] Prayer [XX] Active listening [XX] Non-anxious presence [] Spiritual/emotional support [] Crisis/trauma care [] Spiritual counseling [] Bereavement support [] Provided bereavement packet [] Provided Bible/devotional materials [] Provided toy/stuffed animal, coloring book to patient or family member [] Provided Communion [] Anointing/[employer] [] Salvation [XX] Completed spiritual assessment [] Other: Impact on Illness or Injury [] Angry [] Fearful [] Anxious [] Often cries [] Exhaustion [] Unable to work [] Unable to attend buddhism [] Unable to walk/stand [] Unable to read [] Unable to drive [] Unable to eat/drink [] Unable to sleep [] Unable to be with family [] Patient intubated [] Other: Summary Patient stated he is feeling better but is still dealing with severe, painful coughing. Time spent with patient 7 minutes
--- NOTE | 2021-08-16 13:48 | ANE.PACU2 ---
Inpatient post-anesthesia follow up: Airway intact: Yes Vital signs: Temperature 97.9 F Pulse Rate 72 Respiratory Rate 16 Blood Pressure 128/75 Pulse Oximetry 95 Oxygen Delivery Me thod Room Air Oxygen Flow Rate 1 Fraction of Inspir ed Oxygen Hydration adequate: Yes Nausea and vomiting: No Pain level: 2 Mental status: Baseline Additional Comments: POD#4, doing well, moved to floor, would plan to remove epidural tomorrow if chest tubes removed.
[2021-08-16] MEDS: morphine 4 mg/mL SDV 1 mL 2 MG IVP (17:23)
[2021-08-17] VITALS (9 sets, daily range): BP systolic 109–153; BP diastolic 68–77; PULSE 70–94; RESP 16–18; TEMP 36.7–37.1; O2SAT 93–95
--- NOTE | 2021-08-17 06:00 | XRR_ITS ---
PROCEDURE INFORMATION: Exam: XR Chest Exam date and time: 08/17/2021 6:00 AM Age: 71 years old Clinical indication: Device placement; Other: Pod#5 S/P lobectomy; Chest tube to water seal; Prior surgery; Surgery date: Post-operative (0-2 days) TECHNIQUE: Imaging protocol: XR of the chest. Views: 1 view. COMPARISON: CR XR chest 1V portable [id number] 08/16/2021 6:13 AM FINDINGS: Tubes, catheters and devices: Thoracotomy tube right hemithorax inferiorly. Tiny apical pneumothorax. Stable. Lungs: No focal consolidation. Pleural spaces: See Tubes, catheters and devices finding. Heart/Mediastinum: Unremarkable. No cardiomegaly. Bones/joints: Unremarkable. XR/XR chest 1V portable [id number] IMPRESSION: 1. Thoracotomy tube right hemithorax inferiorly. Tiny apical pneumothorax. Stable. 2. No focal consolidation. Radiation Dose CTDIVOL = (mGy): DLP = (mGy-cm)
[2021-08-17] MEDS: guaiFENesin 100 mg/5 mL UDC 10 mL 200 MG PO ×3 (07:29→22:09)
[2021-08-17] MEDS: lactulose oral liq 20 gm/30 mL UDC PO (07:29)
[2021-08-17] MEDS: pantoprazole DR 40 mg Tablet PO (08:34)
--- NOTE | 2021-08-17 08:46 | ANE.PACU2 ---
Inpatient post-anesthesia follow up: Airway intact: Yes Vital signs: Temperature 98.2 F Pulse Rate 85 Respiratory Rate 18 Blood Pressure 122/74 Pulse Oximetry 95 Oxygen Delivery Me thod Room Air Oxygen Flow Rate 1 Fraction of Inspir ed Oxygen Hydration adequate: Yes Nausea and vomiting: No Pain level: 2 Mental status: Baseline Additional Comments: POD#5 Epidural removed with tip intact.
--- NOTE | 2021-08-17 10:03 | PM.MISC ---
Miscellaneous Note Purpose of Documentation: Postop day #5 status post right middle lobectomy. No air leak on waterseal overnight. Decreasing chest tube drainage. Chest tubes were discontinued. Incisions are clean, dry, and intact. Recommend allowing ambulation this afternoon. Epidural catheter has been previously removed by Dr. Bowman from anesthesia. May shower tomorrow after review of chest x-ray. If continues to progress, may discharge home tomorrow with home health services.
--- NOTE | 2021-08-17 11:09 | PC.SOCIAL ---
IMM Updated Updated pt on IMM. No questioned voiced. Provided pt a copy. Initialed, dated, & timed copy in chart.
[2021-08-17] MEDS: magnesium hydroxide 30 mL UDC 45 ML PO (11:13)
[2021-08-17] MEDS: HYDROcodone-acetaminophen 5-325 mg Tablet 1 TAB PO ×3 (11:13→22:10)
--- NOTE | 2021-08-17 12:05 | PM.CONSULT ---
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 Patient was later referred to oncology and CT surgery for adjuvant right middle lobectomy. While in the clinic when patient refused chemotherapy and radiation but was interested in pursuing surgery.Patient had good baseline functional status. Runs on treadmill at least 1 to 1.5 miles a day 5-6 days weekly reported smoking cigarettes for several years and later switched to smoking-2008.. On 10/12/2020 patient underwent resection of Right middle lobe, Prominent enlarged right hilar lymph node, Right posterior mediastinal right paraesophageal lymph node. Dr. Ochoa requested to follow-up patient in his absence. Today patient is postop day 7-Jgywb-Pfiaty were taken out today -Patient started ambulating -Other than some discomfort to the incision site patient denied any other complaints -Other labs and imaging reviewed Review of Systems General: Reports: 10 or more systems reviewed and unremarkable except in HPI and below Meds/Allergies Home Medications and Allergies Home Medications Medication Instructions Recorded Confirmed Last Taken Type cinnamon bark 500 mg capsule 2,000 mg PO DAILY 05/22/21 08/13/21 08/11/21 History omega-3 fatty acids 1,000 mg 2,000 mg PO DAILY cap 05/22/21 08/07/21 08/07/21 History capsule ascorbate calcium (vitamin C) 500 500 mg PO DAILY 07/12/21 08/07/21 08/11/21 History mg tablet multivitamin 1 tab PO DAILY 07/12/21 08/07/21 08/11/21 History selenium 200 mcg capsule 200 mcg PO DAILY 07/12/21 08/07/21 08/11/21 History zinc sulfate 50 mg zinc (220 mg) 50 mg PO DAILY 07/12/21 08/07/21 08/07/21 History capsule mecobalamin (vitamin B12) 5,000 5,000 mcg PO DAILY 07/25/21 08/07/21 08/11/21 History mcg disintegrating tablet Vitamin D3 25 mcg PO DAILY 08/07/21 08/07/21 08/11/21 History vitamin E 400 units PO DAILY 08/07/21 08/07/21 08/11/21 History Allergies Allergy/AdvReac Type Severity Reaction Status Date / Time No Known Allergies Allergy Verified 08/01/21 10:33 Current Medications Current Medications Generic Name Dose Route Start Last Admin Trade Name Freq PRN Reason Stop Dose Admin Hydrocodone Bitart/Acetaminophen 1 tab 08/17/21 11:01 08/17/21 11:13 Hydrocodone-Acetaminophen 5-325 Mg Tablet PO 1 tab Q4H PRN Administration MODERATE PAIN Bisacodyl 5 mg 08/12/21 17:35 08/16/21 09:29 Bisacodyl 5 Mg Tablet PO 5 mg Q6H PRN Administration Constipation (Use 2nd) Docusate Sodium 100 mg 08/12/21 17:35 08/16/21 06:49 Docusate Sodium 100 Mg Capsule PO 100 mg BID PRN Administration Constipation (Use 1st) Guaifenesin 200 mg 08/12/21 17:35 08/17/21 07:29 Guaifenesin 100 Mg/5 Ml Udc 10 Ml PO 200 mg Q4H PRN Administration COUGH Ketorolac Tromethamine 30 mg 08/12/21 17:35 08/15/21 04:38 Ketorolac 30 Mg/Ml Inj IVP 08/17/21 17:34 30 mg Q6H PRN Administration MODERATE PAIN Lactulose 20 gm 08/12/21 17:35 08/17/21 07:29 Lactulose Oral Liq 20 Gm/30 Ml Udc PO 20 gm Q6H PRN Administration Constipation (Use 3rd) Magnesium Hydroxide 45 ml 08/12/21 17:35 08/17/21 11:13 Magnesium Hydroxide 30 Ml Udc PO 45 ml DAILY PRN Administration Constipation (use 4th) Ondansetron HCl 4 mg 08/12/21 17:35 08/15/21 07:28 Ondansetron 2 Mg/Ml Sdv 2 Ml IVP 4 mg Q6H PRN Administration NAUSEA AND VOMITING Pantoprazole Sodium 40 mg 08/13/21 09:00 08/17/21 08:[address] 40 Mg Tablet PO 40 mg DAILY CLYDE Administration PFSH Acute PFSH: Surgical History Status post lobectomy of lung Family History Mother Cancer Father Heart failure Brother Lung cancer Social History Smoking and tobacco status: current every day smoker pipe Pipes smoked per week: 15 (everyday) Years smoked pipe: 21 Alcohol intake: former service: Yes status: 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[employer] 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, 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 Current gender identity: Male Vitals/I&O/Wt Last Vital Signs Temp 98.1 F 08/17/21 11:54 Pulse 80 08/17/21 11:54 Resp 16 08/17/21 11:54 BP 109/70 08/17/21 11:54 Pulse Ox 95 08/17/21 11:54 08/16/21 08/17/21 08/17/21 22:59 06:59 14:59 Intake Total 580 / 1040 580 / 1620 Output Total 130 / 430 425 / 855 Balance 450 / 610 155 / 765 Physical Exam Narrative: EXAM NARRATIVE: General: alert, NAD HEENT: conj clear, EOMI, PERRL, mmm, Neck: supple, no meningismus Heme: no cervical LAP Pulmonary: Wheezing noted on the right side surgical incision sites-dressing clean and intact, CTAB, no wheezing, rhonchi, crackles Cardiovascular: rrr, nl s1s2, no mrg Abdomen: soft, nt, nd, no r/g, bs+ Extremities: pulses +, no edema, no c/c : no CVA tenderness Skin: intact, no rash MSK: no back or neck pain Neurologic: grossly intact Urinary Catheter Management^: Seymour Latex: Cath Placed During This Visit: yes, but has since been removed by the nurse Reason for Continuing Indwelling Catheter: Decision to DC Catheter Urinary Catheter Date of Insertion: 08/12/21 Urinary Catheter Time of Insertion: 12:50 Date Urinary Catheter Removed: 08/15/21 Time Urinary Catheter Discontinued: 17:45 Data Labs: Other Labs: Laboratory Results WBC 7.6 10^3/uL (4.0- 10.0) 08/15/21 04:48 RBC 3.41 10^6/uL (4.1 -5.3) L 08/15/21 04:48 Hgb 9.8 g/dL (11.7-16 .6) L 08/15/21 04:48 Hct 30.0 % (42.0-52.0 ) L 08/15/21 04:48 MCV 88.0 fl (80-94) 08/15/21 04:48 MCH 28.7 pg (28.0-34. 0) 08/15/21 04:48 MCHC 32.7 g/dL (30.0-3 6.0) 08/15/21 04:48 RDW 12.4 % (12.1-15.1 ) 08/15/21 04:48 Plt Count 146 10^3/cmm (130 -400) 08/15/21 04:48 MPV 10.2 fL (7.4-10.4 ) 08/15/21 04:48 Neut % (Auto) 68.3 % 08/15/21 04:48 Lymph % (Auto) 17.7 % 08/15/21 04:48 [place] % (Auto) 10.1 % 08/15/21 04:48 Eos % (Auto) 2.9 % 08/15/21 04:48 Baso % (Auto) 0.5 % 08/15/21 04:48 Neut # (Auto) 5.20 10^3/uL (1.8 -7.7) 08/15/21 04:48 Lymph # (Auto) 1.4 10^3/uL (0.8- 4.8) 08/15/21 04:48 [place] # (Auto) 0.8 10^3/uL (0.2- 0.9) 08/15/21 04:48 Eos # (Auto) 0.2 10^3/uL (0.0- 0.8) 08/15/21 04:48 Baso # (Auto) 0.0 10^3/uL (0.0- 0.1) 08/15/21 04:48 Nucleated RBC % (a uto) 0 % 08/15/21 04:48 Nucleated RBCs # 0.0 /100WBC 08/15/21 04:48 PT 13.70 SECONDS (12 .1-14.9) 08/07/21 10:00 INR 1.02 (0.8-1.2) 08/07/21 10:00 Sodium 139 mmol/L (136-1 45) 08/15/21 04:48 Potassium 4.1 mmol/L (3.5-5 .1) 08/15/21 04:48 Chloride 103 mmol/L (98-10 7) 08/15/21 04:48 Carbon Dioxide 28 mmol/L (22-29) 08/15/21 04:48 Anion Gap 12.1 (5-19) 08/15/21 04:48 BUN 18 mg/dL (8-23) 08/15/21 04:48 Creatinine 0.7 mg/dL (0.7-1. 2) 08/15/21 04:48 GFR Calculation 111.5 mL/min (90- 130) 08/15/21 04:48 Glucose 121 mg/dL (65-115 ) H 08/15/21 04:48 Calculated Osmolal ity 291 mOsm/kg (285- 295) 08/15/21 04:48 Calcium 8.1 mg/dL (8.5-10 .5) L 08/15/21 04:48 Urine Color Straw (Yellow) 08/07/21 09:05 Urine Appearance Clear (CLEAR) 08/07/21 09:05 Urine pH 5 (5-7) 08/07/21 09:05 Ur Specific Gravit y 1.010 (1.005-1.0 30) 08/07/21 09:05 Urine Protein Neg (Negative) 08/07/21 09:05 Urine Glucose (UA) Norm (Normal) 08/07/21 09:05 Urine Ketones Negative (Negati ve) 08/07/21 09:05 Urine Blood Neg (Negative) 08/07/21 09:05 Urine Nitrate Negative (Negati ve) 08/07/21 09:05 Urine Bilirubin Neg (Negative) 08/07/21 09:05 Urine Urobilinogen Norm mg/dL (Negat leonel) 08/07/21 09:05 Ur Leukocyte Patricia ase Negative (Negati ve) 08/07/21 09:05 Blood Type A Positive 08/07/21 10:00 Rho(D) Type Positive 08/07/21 10:00 Antibody Screen Negative 08/07/21 10:00 Crossmatch See Detail 08/07/21 10:00 Impressions Chest X-Ray 08/17/21 06:00 IMPRESSION: 1. Thoracotomy tube right hemithorax inferiorly. Tiny apical pneumothorax. Stable. 2. No focal consolidation. Radiation Dose CTDIVOL = (mGy): DLP = (mGy-cm) A&P Assessment and plan (1) Emphysema lung: Status: Acute Qualifiers: Emphysema type: centrilobular Qualified Code(s): J43.2 - Centrilobular emphysema (2) NSCLC of right middle lobe: Status: Acute (3) Status post lobectomy of lung: Status: Acute #S/p right middle lobectomy - positive for moderately differentiated invasive squamous cell carcinoma and one right hilar lymph node positive -T1bN1 Stage IIB Squamous cell carcinoma; 2 Paraesophageal lymph nodes negative -Immunomarkers pending -chest tubes and epidural out today -Tolerating diet and encourage ambulation and bedside physical therapy -Continue incentive spirometry and out of bed to chair -Patient will benefit from adjuvant chemotherapy but he was not interested in pursuing chemotherapy as he is afraid of associated side effects- to follow up with Oncology as out patient. -Prior to surgery pt had PFTs on 07/23/2021 which were consistent with moderate obstructive ventilatory disease with postbronchodilator FEV1 2.83 L. There is significant bronchodilator response. Lung volumes are normal. There is mild gas transfer defect. - May plan for discharge tomorrow from pulmonary point of view if overnight remains uneventful. - I will follow up in pulmonary clinic post discharge #Emphysema -PFTs 07/23/2021 are consistent with moderate obstructive ventilatory disease with postbronchodilator FEV1 2.83 L. There is significant bronchodilator response. Lung volumes are normal. There is mild gas transfer defect. -No reported exacerbations, mMRC 1 -group A -Says he walks 1 to 1.5 miles/day for 6 days a week -Counseled to quit smoking pipe -Albuterol as needed will update my recommendations to Dr. Ochoa Consult Attestations Medical Necessity Statement: may plan for discharge in 1-2 days if clinically remains stable Coding Level of Care Code New Pt Acute Outpatient Pharmacy Manager for Chg Fwd Patient Type New History Comprehensive Exam Comprehensive Medical Decision Making Moderate Complexity Diagnoses Emphysema lung J43.2 Emphysema type: centrilobular NSCLC of right middle lobe C34.2 Status post lobectomy of lung Z90.2 Time Spent (min) 45
[2021-08-18] VITALS: BP 131/67; PULSE 77; RESP 16; TEMP 36.9; O2SAT 96
[2021-08-18 04:00] VITALS: BP 127/69; PULSE 86; RESP 17; TEMP 36.9; O2SAT 92
--- NOTE | 2021-08-18 06:00 | XRR_ITS ---
PROCEDURE INFORMATION: Exam: XR Chest Exam date and time: 08/18/2021 6:00 AM Age: 71 years old Clinical indication: Device placement; Other: Pod #6 status post right middle lobectomy; Prior surgery; Surgery date: Post-operative (0-2 days) TECHNIQUE: Imaging protocol: XR of the chest. Views: 1 view. COMPARISON: CR (CHEST, ) 08/17/2021 6:43 AM FINDINGS: Tubes, catheters and devices: The right chest tubes have been removed. There is a trace right apical pneumothorax. Lungs: There is minimal atelectasis in the lung bases. Pleural spaces: Trace right apical pneumothorax. Heart/Mediastinum: Unremarkable. No cardiomegaly. Bones/joints: Patient has undergone right thoracotomy. Small amount of subcutaneous emphysema is present over the right side of the chest. XR/XR chest 1V portable [id number] IMPRESSION: 1. Status post right thoracotomy. 2. The right chest tubes have removed. There is a trace right apical pneumothorax. Radiation Dose CTDIVOL = (mGy): DLP = (mGy-cm)
[2021-08-18] MEDS: guaiFENesin 100 mg/5 mL UDC 10 mL 200 MG PO (07:15)
[2021-08-18] MEDS: HYDROcodone-acetaminophen 5-325 mg Tablet 1 TAB PO ×2 (07:15→11:42)
[2021-08-18 07:26] VITALS: BP 130/79; PULSE 85; RESP 17; TEMP 36.8; O2SAT 94
[2021-08-18] MEDS: pantoprazole DR 40 mg Tablet PO (09:21)
[2021-08-18] MEDS: lactulose oral liq 20 gm/30 mL UDC PO (09:21)
[2021-08-18] MEDS: bisacodyl 5 mg Tablet PO (09:22)
[2021-08-18] MEDS: docusate sodium 100 mg Capsule PO (09:22)
--- NOTE | 2021-08-18 10:29 | P.DS_ITS ---
Discharge Providers Date of Admission: 08/12/21 16:55 Date of Discharge: August 18, 2021 Attending Provider at Admission: Elian Ochoa MD Attending Provider at Discharge: Elian Ochoa MD Primary Care Provider: Jocelyn Milton MD Diagnoses at Discharge Discharge Diagnosis (1) Emphysema lung: Status: Acute Qualifiers: Emphysema type: centrilobular Qualified Code(s): J43.2 - Centrilobular emphysema (2) NSCLC of right middle lobe: Status: Acute (3) Status post lobectomy of lung: Status: Acute Reason for Visit Reason for Visit: Lung Nodule Hospital Course Hospital Course Patient is a very pleasant 71-year-old gentleman referred to our service due to a right middle lobe lung lesion with increased activity on PET scan having been evaluated by Dr. Gonsales from our oncology service. Original diagnostic testing was performed at the [facility] in [place]. Lesion was originally identified on lung screening CT scan related to his prior history for tobacco use. PET scan was performed in February of this year and related to the interval. At which time he was seen by Dr. Gonsales, he recommended a follow-up study be performed which now reveals an enlarged hilar lymph node. Therefore he was referred to consider surgical options. After careful preoperative evaluation including pulmonary clearance by Dr. Landin, he underwent right middle lobectomy on August 12. Pathology has returned invasive squamous cell carcinoma, nonkeratinizing. The prominent hilar lymph node also revealed metastatic squamous cell carcinoma. Also identified were 2 benign lymph nodes. Postoperatively, he convalesced initially in the ICU and then was eventually transferred to the medical/surgical [facility]. He did have a small air leak which slowly improved. Chest tubes were placed to waterseal on the fourth postop day and then were removed on postop day #5 with no air leak noted. Follow-up chest x-ray reveals just a trace of an apical pneumothorax which is stable. Incisions are clean and dry. Chest wall is stable. Good use of incentive spirometry. Postop thoracotomy discomfort is under good control. Tolerating diet well. Bowel and bladder function have returned. He is eager for discharge. We have made arrangements for home health services and are awaiting [place] approval for this. He will be discharged today in stable condition. He will be scheduled to follow-up in my clinic in approximately 2 weeks and in [address] Datar and pulmonary medicine. Physical Exam Urinary Catheter Management^: Seymour Latex: Cath Placed During This Visit: yes, but has since been removed by the nurse Reason for Continuing Indwelling Catheter: Decision to DC Catheter Urinary Catheter Date of Insertion: 08/12/21 Urinary Catheter Time of Insertion: 12:50 Date Urinary Catheter Removed: 08/15/21 Time Urinary Catheter Discontinued: 17:45 Discharge Data Data Completed and Pending: Completed Studies During Hospitalization Category Date Time Status XR chest 1V rufino ble [id number] Routine Exams 08/12/21 17:02 Completed XR chest 1V rufino ble [id number] Routine Exams 08/13/21 06:00 Completed XR chest 1V rufino ble [id number] Routine Exams 08/14/21 06:00 Completed XR chest 1V rufino ble [id number] Routine Exams 08/15/21 06:00 Completed XR chest 1V rufino ble [id number] Routine Exams 08/16/21 06:00 Completed XR chest 1V rufino ble [id number] Routine Exams 08/17/21 06:00 Completed XR chest 1V rufino ble [id number] Routine Exams 08/18/21 06:00 Completed Pathology: Surgic al [PTH] Routine Pth 08/12/21 17:52 Completed Labs from last 24 hours 08/07/21 10:00 Crossmatch See Detail Vitals: Last Vital Signs Temp 98.2 F 08/18/21 07:26 Pulse 85 08/18/21 07:26 Resp 17 08/18/21 07:26 BP 130/79 08/18/21 07:26 Pulse Ox 94 08/18/21 07:26 Discharge Plan Discharge Patient Disposition: Home Health Service Condition: Stable Prescriptions: New hydrocodone-acetaminophen 5-325 mg Tablet 1 tab PO Q6H PRN (Reason: Moderate Pain) Qty: 20 RF: 0 Continued cinnamon bark 500 mg capsule 2,000 mg PO DAILY RF: 0 omega-3 fatty acids [Fish Oil Concentrate] 1,000 mg capsule 2,000 mg PO DAILY RF: 0 mecobalamin (vitamin B12) 5,000 mcg tablet,disintegrating 5,000 mcg PO DAILY RF: 0 ascorbate calcium (vitamin C) 500 mg tablet 500 mg PO DAILY RF: 0 selenium 200 mcg capsule 200 mcg PO DAILY RF: 0 zinc sulfate [Orazinc] 50 mg zinc (220 mg) capsule 50 mg PO DAILY RF: 0 multivitamin [Multiple Vitamins] Tablet 1 tab PO DAILY RF: 0 Vitamin D3 25 mcg PO DAILY RF: 0 vitamin E 400 units PO DAILY RF: 0 Discharge Orders: Discharge Order (Routine); Ordered 08/18/21 Ordered By: Elian Ochoa Referrals: [facility] ([facility]) [Outside] DatarDuncan MD [Physician] - 7-10 days Elian Ochoa MD [Physician] - 2 weeks Discharge Diet: Usual diet Discharge Activity: Limit activity as instructed Patient Instructions: Opioid Safety Activity Restrictions/Additional Instructions: No heavy lifting or pulling x2 weeks No swimming or tub baths x2 weeks May shower daily without dressings. Dry incisions completely afterwards. May cover if desired or leave open Use incentive spirometer frequently Report any fever, increasing pain, increasing shortness of breath, increasing redness of incisions or drainage Discharge Attestations Time Spent in Discharge Care*: less than 30 min Specific Discharge Activities: educating patient, discussing with pcp/other providers, discussing with disability case manager/social workers/dc planners, documenting/other paperwork and evaluating patient/reviewing data Time Spent in Smoking Cessation: 3 to 10 minutes Status at Discharge: Cognitive status at discharge: cognitively intact , Behavioral status at discharge: cooperative , Functional status at discharge: independent ambulation Overall status at discharge: patient is back to [facility] Quality Metrics Clinical Quality Measures During this hospital stay, did patient experience: None Coding Level of Care Code Acute g DC note Diagnoses Emphysema lung J43.2 Emphysema type: centrilobular NSCLC of right middle lobe C34.2 Status post lobectomy of lung Z90.2
[2021-08-18] MEDS: chlorhexidine gluconate 4% Btl 118 mL 1 APPLIC TOPICAL (11:19)
[2021-08-18 11:46] VITALS: BP 121/74; PULSE 85; RESP 17; O2SAT 96
[2021-08-18 12:00] VITALS: BP 121/74; PULSE 85; RESP 17; O2SAT 96
--- NOTE | 2021-08-20 14:12 | PC.SOCIAL ---
pt concerned about getting adore removed. spoke with Jeannine, heart care services, pt has an appointment with dr. sesay on 08-30, they will remove the adore at this appointment and then schedule for dr. méndez if needed for future appointment. this message relayed to patient.
[2021-08-28 09:58] LABS: PD-L1 (Clone 22C3) by IHC BBPL See Report
== END 2021-08-18 12:14 | disposition home health service (06) | DRG 164 ==
LOC: ICU 16:55 → MEDSURG 08-15 20:21
PROVIDERS: Admitting Provider Thoracic Surgery (Cardiothoracic Vascular Surgery); PCP Family Medicine; Visit Provider Thoracic Surgery (Cardiothoracic Vascular Surgery)
PROC: 0BTF0ZZ Resection of Right Lower Lung Lobe, Open Approach (ICD-10-PCS; CPT 32480; principal; 2021-08-12 10:10)
DX: C34.2 Malignant neoplasm of middle lobe, bronchus or lung (principal); C77.1 Secondary and unspecified malignant neoplasm of intrathoracic lymph nodes; J95.812 Postprocedural air leak; F17.210 Nicotine dependence, cigarettes, uncomplicated; J43.2 Centrilobular emphysema
CPT/HCPCS: 01996; 36415; 51702; 71045; 80048; 81003; 85025; 85610; 86850; 86900; 86920; 88305; 88309; 88342; 93005; 94664; C2816; J0690; J1100; J1610; J1644; J1885; J1940; J2250; J2270; J2405; J2704; J2710; J2795; J3010; J3490; J7030; P9016

== ENCOUNTER 2021-09-18 14:44 | Outpatient (CLI) | payer OTHER, SELFPAY ==
--- NOTE | 2021-09-20 13:05 | ONC FU_ITS ---
Dr. Gonsales Patient Follow-Up Note Patient: Darian Betancourt Unit #: [id number]: 1950 Dicatated By: Darrel Gonsales M.D.Date of Visit:Sep 18, 2021 Onc Med Follow-up/Prog Note Chief Complaint: Lung cancer. 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 In February 2021 had been found on screening chest CT to have a right middle lobe lung mass. His further evaluation with PET/CT on 03/25/2021 showed an FDG avid nodule in the middle lobe of the right lung measuring 9.8 mm, SUV 4.9, consistent with primary lung malignancy. Additional nodules in the left lower lobe measuring 4.7 mm and 7.3 mm had minor FDG activity. There was no mediastinal or hilar adenopathy noted. There was evidence of emphysema. He was noted to have multinodular goiter with mild FDG activity within a right thyroid nodule. The prostate was noted to be enlarged, measuring 4.9 x 5.4 cm. There were no other abnormal findings. On 04/04/[address]-guided biopsy of the right middle lobe nodule. The procedure was complicated by pneumothorax, requiring temporary placement of a pleural drainage catheter. 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 By IHC the tumor cells were positive for CAM 5.2, CK7, TTF-1, and synaptophysin. They were negative for NKX3.1. I had seen him initially on 06/25/2021. Due to the interval from the initial diagnosis, he had a repeat chest CT on 06/28/2021. It showed no change in the appearance of the right middle lobe nodule measuring 8.8 x 8.2 mm, but there was appearance of a new enlarged right hilar lymph node measuring 12 mm. There was no other adenopathy noted. A partially calcified nodule in the left lower lobe measuring 7.5 mm and an additional noncalcified nodule in the superior segment of the left lower lobe measuring 6 mm appears unchanged. With those findings, it appeared likely that he had N1 disease. However, as he was still potentially an operable candidate, he was referred to Dr. Ochoa, and on 08/12/2021 he underwent muscle-sparing right posterior lateral thoracotomy with right middle lobectomy. Pathology showed moderately differentiated, nonkeratinizing invasive squamous cell carcinoma measuring 1.2 cm in greatest dimension. There was no evidence for visceral pleural invasion and all margins were negative for invasive carcinoma. There was involvement in 1 of 3 hilar lymph nodes with the involved node measuring 2.2 cm and with evidence of extracapsular extension. His pathologic staging was T1b, N1. His medical illnesses are otherwise limited to COPD and diet-controlled type 2 diabetes. He has a history of smoking for 33 years, up to a maximum of 3 packs of cigarettes daily. He quit smoking cigarettes in 1997 and then smoked a pipe for 2 or 3 more years. 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 He is seen for a follow-up visit. He has been feeling good generally. He had no complications with his lung surgery. His energy has been getting better, and he is pretty much back to his normal routine, though he still does not have full strength. His ECOG score is 1. He has good appetite. He has no fever or night sweats. He always has sinus drainage. He still has a little bit of sore throat. He does not complain of cough, and he has not been having shortness of breath or chest pain. He has no GI or complaints. He does not complain of headache or dizziness. He is still having a little postthoracotomy discomfort and some numbness in that area. He has no other focal neurologic symptoms. Medications: A Thru Z Advanced Adult 1 Tablet Oral daily, Cholecalciferol 1 Tablet (of 125 mcg ) Capsule Oral daily, Cinnamon 4 (500 mg) Capsule Oral daily, Selenium 1 Tablet (of 200 mcg) Capsule Oral daily, Vitamin C 1 Tablet (of 500 mg) Capsule Oral daily, Vitamin E 1 Tablet (of 200 Unit(s)) Oral daily, Zinc 1 Tablet (of 50 mg) Oral daily Allergies: No Known Allergies. Vital Signs: Performed on Sep 18, 2021 15:49 Height - 76.00 in Weight - 185.0 lbs (LOW) BSA - 2.14 sq.m BMI - 22.52 Temperature - 98.4 F Pulse - 80 /min Respiration - 18 /min BP - 123/75 mm(hg) O2 Sat - 96 % Pain - 2 Fatigue - 0 Physical Examination: Constitutional - He looks good generally, Eyes - Sclerae nonicteric. Conjunctivae clear, ENMT - No lesions noted in the oral cavity, Hematologic/Lymphatic - No cervical, clavicular, or axillary adenopathy, Respiratory - Lungs are clear with slightly coarse breath sounds bilaterally, Cardiovascular - Heart rhythm is regular. There is no murmur, gallop, or rub noted, Chest - The thoracotomy incision appears well-healed, Abdomen - Soft. Liver and spleen are not enlarged. There is no abdominal mass or ascites noted and there is no inguinal adenopathy, Extremities - No edema, Neurologic - No focal neurologic deficits noted. Lab/Imaging: Test performed on Jun 11, 2021 08:08 Folate 18.0 ng/mL TSH 1.247 uU/mL Vitamin B12 390 pg/mL Glucose 112 mg/dL Vitamin D (25-Hydroxy) 38.1 ng/mL BUN 15 mg/dL Creatinine 0.83 mg/dL Cr Clearance (Est) 102.65 mL/min Sodium 140 mmol/L Potassium 4.1 mmol/L Chloride 108 mmol/L CO2 24 mmol/L Calcium 9.3 mg/dL Protein, Total 6.5 g/dL Albumin 4.0 g/dL Bilirubin, Total 0.5 mg/dL Alkaline Phosphatase 90 International Units/L AST (SGOT) 19 International Units/L ALT (SGPT) 21 International Units/L Hemoglobin A1C 5.9 % WBC 5.4 10^9/L RBC 5.12 10^12/L HGB 14.9 g/dL HCT 45.5 % MCV 88.9 fl MCH 29.1 pg MCHC 32.7 g/dL RDW 13.2 % Platelet Count 164 10^9/L MPV 9.7 fL Neutrophils (Gran) 2.87 10^9/L Lymphocytes 1.74 10^9/L Monocytes 0.47 10^9/L Eosinophils 0.23 10^9/L Basophils 0.06 10^9/L Manual Lymphocytes 32.3 % Manual Monocytes 8.7 % Manual Eosinophils 4.3 % Manual Basophils 1.1 % PSA 3.53 ng/mL Test performed on Apr 29, 2021 11:27 Testosterone 706.0 ng/dL Problem List: 1. 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 2. Type 2 diabetes, diet controlled. 3. He has CT evidence of COPD. 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 He first had CT evidence of a right middle lobe pulmonary nodule in February 2021. The diagnosis was confirmed by CT directed biopsy on 04/04/2021. By PET/CT, his disease appeared to be stage IA (T1a, N0, M0). There was some delay with his further treatment, but he ultimately did proceed to right muscle-sparing thoracotomy with right middle lobectomy on 08/12/2021. By that time his chest CT had shown a slightly enlarged right hilar lymph node. His surgical pathology showed moderately differentiated, nonkeratinizing invasive squamous cell carcinoma measuring 1.2 cm. There was no visceral pleural involvement and the margins were free. There was involvement in 1/3 hilar lymph nodes which measured 2.2 cm and which showed extracapsular extension. Final staging was IIB (T1b, N1, M0). The pathology findings were reviewed with the patient, and we discussed the clinical implications. With hilar lymph node involvement, his risk for recurrence of the lung cancer is significantly higher, and he would potentially benefit with adjuvant chemotherapy. The recommended treatment would be 4 cycles of chemotherapy with cisplatin/docetaxel. I reviewed the potential benefits and side effects of the treatment, with the benefit estimated as an absolute increase in the cure rate in the range of 5%. Given that information, he prefers not to have treatment, and he will just be followed with expectant management. I will tentatively plan to see him for a follow-up visit in 3 months and to schedule surveillance CT scans at a 6-month interval. Signed By: Darrel Gonsales M.D. <<Signature on File>>
== END 2021-09-18 14:45 | disposition home or self-care (01) ==
LOC: ONCMED 14:47
PROVIDERS: PCP Family Medicine; Visit Provider Internal Medicine Medical Oncology
DX: Z08 Encounter for follow-up examination after completed treatment for malignant neoplasm (principal); Z85.118 Personal history of other malignant neoplasm of bronchus and lung; E11.9 Type 2 diabetes mellitus without complications; J44.9 Chronic obstructive pulmonary disease, unspecified; Z90.2 Acquired absence of lung [part of]
CPT/HCPCS: 99214

== ENCOUNTER 2021-12-20 09:55 | Outpatient (CLI) | payer OTHER, SELFPAY ==
--- NOTE | 2021-12-20 10:08 | CT_ITS ---
WS: [id number] CT scan of the chest with IV contrast, additional two-dimensional coronal and sagittal reconstruction was performed. 12/20/2021 Clinical Data: LUNG CANCER Comparison: None. DLP: 818.[address] scans at [facility] use at least one of these dose optimization techniques: automated e xposure control; mA and/or kV adjustment per patient size (includes targeted exams where dose is matc hed to clinical indication); or iterative reconstruction. Findings: The left lower lobe nodule seen best on axial image 36 of 76 which is partially calcified has not angelica nged. The right middle lobe nodule is not present. The second nodule in the superior segment of the l eft lower lobe is not seen. The right hilar node has not changed. The heart size is normal with no pe ricardial effusion. The pulmonary arterial system and thoracic aorta demonstrate no abnormalities or dilatations. There is no new axillary or significant mediastinal adenopathy. The upper abdomen demonstrates new low-density regions in the left and right lobe of the liver suspic ious for metastatic disease. The spleen, adrenal glands, pancreas and gallbladder are unremarkable. T he portions of the kidneys that are seen show normal contrast excretion. The bones of the thorax demo nstrate no metastatic disease. CT/CT chest w con* [id number] Impression: 1. Low-density areas in the right and left lobes of liver suspicious for metast atic disease. 2. Right middle lobe nodule and second left lower lobe nodule not imaged. 3. Negative for new nodules or masses in the lung.
[2021-12-20 10:50] LABS: Blood Urea Nitrogen 17 mg/dL (8-23); Glomerular Filtration Rate 73.9 mL/min (90-130)
[2021-12-20] MEDS: iohexol 300 mg/mL 100 mL Btl IV (10:51)
== END 2021-12-20 09:56 | disposition home or self-care (01) ==
PROVIDERS: PCP Family Medicine; Visit Provider Internal Medicine Medical Oncology
DX: C34.2 Malignant neoplasm of middle lobe, bronchus or lung (principal); R91.1 Solitary pulmonary nodule
CPT/HCPCS: 71260; 82565; 84520

== ENCOUNTER 2021-12-26 07:30 | Outpatient (CLI) | payer OTHER, SELFPAY ==
[2021-12-26 08:16] LABS: Basophils # 0.1 10^3/uL (0.0-0.1); Basophils % 1.3 %; Eosinophils # 0.1 10^3/uL (0.0-0.8); Eosinophils % 2.5 %; Hematocrit 44.8 % (42.0-52.0); Hemoglobin 14.6 g/dL (11.7-16.6); Lymphocytes # 1.5 10^3/uL (0.8-4.8); Lymphocytes % 27.1 %; Mean Corpuscular HGB Conc 32.6 g/dL (30.0-36.0); Mean Corpuscular Hemoglobin 27.8 pg (28.0-34.0); Mean Corpuscular Volume 85.3 fl (80-94); Mean Platelet Volume 9.1 fL (7.4-10.4); Monocytes # 0.5 10^3/uL (0.2-0.9); Monocytes % 9.5 %; Neutrophils # 3.31 10^3/uL (1.8-7.7); Neutrophils % 59.2 %; Nucleated Red Blood Cells % 0 %; Platelet Count 187 10^3/cmm (130-400); Red Blood Count 5.25 10^6/uL (4.1-5.3); White Blood Count 5.6 10^3/uL (4.0-10.0)
[2021-12-26 08:37] LABS: Alanine Aminotransferase 16 U/L (0-41); Albumin Level 4.3 g/dL (3.5-5.2); Alkaline Phosphatase 83 IU/L (40-130); Anion Gap 12.9 (5-19); Aspartate Amino Transferase 15 U/L (0-40); Blood Urea Nitrogen 16 mg/dL (8-23); Calcium 9.3 mg/dL (8.5-10.5); Carbon Dioxide 25 mmol/L (22-29); Chloride 104 mmol/L (98-107); Globulin 2.2 g/dL (1.3-4.6); Glomerular Filtration Rate 111.5 mL/min (90-130); Glucose 107 mg/dL (65-115); Osmolality Calculated 288 mOsm/kg (285-295); Potassium 3.9 mmol/L (3.5-5.1); Sodium 138 mmol/L (136-145); Total Bilirubin 0.5 mg/dL (0.15-1.2); Total Protein 6.5 g/dL (6.6-8.7)
--- NOTE | 2021-12-26 15:14 | ONC FU_ITS ---
Dr. Gonsales Patient Follow-Up Note Patient: Darian Betancourt Unit #: [id number]: 1950 Dicatated By: Darrel Gonsales M.D.Date of Visit:Dec 26, 2021 Onc Med Follow-up/Prog Note Chief Complaint: Lung cancer. 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 In February 2021 had been found on screening chest CT to have a right middle lobe lung mass. His further evaluation with PET/CT on 03/25/2021 showed an FDG avid nodule in the middle lobe of the right lung measuring 9.8 mm, SUV 4.9, consistent with primary lung malignancy. Additional nodules in the left lower lobe measuring 4.7 mm and 7.3 mm had minor FDG activity. There was no mediastinal or hilar adenopathy noted. There was evidence of emphysema. He was noted to have multinodular goiter with mild FDG activity within a right thyroid nodule. The prostate was noted to be enlarged, measuring 4.9 x 5.4 cm. There were no other abnormal findings. On 04/04/[address]-guided biopsy of the right middle lobe nodule. The procedure was complicated by pneumothorax, requiring temporary placement of a pleural drainage catheter. 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 By IHC the tumor cells were positive for CAM 5.2, CK7, TTF-1, and synaptophysin. They were negative for NKX3.1. I had seen him initially on 06/25/2021. Due to the interval from the initial diagnosis, he had a repeat chest CT on 06/28/2021. It showed no change in the appearance of the right middle lobe nodule measuring 8.8 x 8.2 mm, but there was appearance of a new enlarged right hilar lymph node measuring 12 mm. There was no other adenopathy noted. A partially calcified nodule in the left lower lobe measuring 7.5 mm and an additional noncalcified nodule in the superior segment of the left lower lobe measuring 6 mm appears unchanged. With those findings, it appeared likely that he had N1 disease. However, as he was still potentially an operable candidate, he was referred to Dr. Ochoa, and on 08/12/2021 he underwent muscle-sparing right posterior lateral thoracotomy with right middle lobectomy. Pathology showed moderately differentiated, nonkeratinizing invasive squamous cell carcinoma measuring 1.2 cm in greatest dimension. There was no evidence for visceral pleural invasion and all margins were negative for invasive carcinoma. There was involvement in 1 of 3 hilar lymph nodes with the involved node measuring 2.2 cm and with evidence of extracapsular extension. His pathologic staging was T1b, N1. His medical illnesses are otherwise limited to COPD and diet-controlled type 2 diabetes. He has a history of smoking for 33 years, up to a maximum of 3 packs of cigarettes daily. He quit smoking cigarettes in 1997 and then smoked a pipe for 2 or 3 more years. 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 INTERIM HISTORY: Surveillance CT scans on 12/20/2021 showed no change in the left lower lobe partially calcified pulmonary nodule. The right middle lobe nodule was not visualized in the second nodule in the superior segment of the left lower lobe also was not seen. There was no change in the right hilar lymph node and there was no new or significant mediastinal adenopathy noted. The upper abdomen showed new low-density lesions in both left and right hepatic lobes, suspicious for metastatic disease. He is seen for a follow-up visit. He has been feeling good generally. He has good energy and activity tolerance. His ECOG score is 0. Appetite is good. He has gained weight. He has not had fever or night sweats. He always has sinus drainage. He has not had sore mouth or throat. He does not complain of cough. He says his breathing is normal. He has not been having any chest pain. He has no GI or complaints. He has no significant joint or bone pain. He does not complain of headache or dizziness, and he has no focal neurologic symptoms. Medications: A Thru Z Advanced Adult 1 Tablet Oral daily, Cholecalciferol 1 Tablet (of 125 mcg ) Capsule Oral daily, Cinnamon 4 (500 mg) Capsule Oral daily, Selenium 1 Tablet (of 200 mcg) Capsule Oral daily, Vitamin C 1 Tablet (of 500 mg) Capsule Oral daily, Vitamin E 1 Tablet (of 200 Unit(s)) Oral daily, Zinc 1 Tablet (of 50 mg) Oral daily Allergies: No Known Allergies. Vital Signs: Performed on Dec 26, 2021 11:32 Height - 76.00 in Weight - 200.4 lbs (HIGH) BSA - 2.22 sq.m BMI - 24.39 Temperature - 98.1 F (LOW) Pulse - 67 /min Respiration - 16 /min BP - 118/75 mm(hg) O2 Sat - 96 % Pain - 0 Fatigue - 0 Physical Examination: Constitutional - He looks good generally, Eyes - Sclerae nonicteric. Conjunctivae clear, ENMT - No lesions noted in the oral cavity, Hematologic/Lymphatic - No cervical, clavicular, or axillary adenopathy, Respiratory - Lungs are clear with good air movement bilaterally, Cardiovascular - Heart rhythm is regular. There is no murmur, gallop, or rub noted, Abdomen - Soft. Liver and spleen are not enlarged. There is no abdominal mass or ascites noted and there is no inguinal adenopathy, Extremities - No edema, Neurologic - No focal neurologic deficits noted. Lab/Imaging: Test performed on Dec 26, 2021 08:10 Sodium 138 mmol/L Potassium 3.9 mmol/L Chloride 104 mmol/L CO2 25 mmol/L Anion Gap 12.9 BUN 16 mg/dL Creatinine 0.7 mg/dL Cr Clearance (Est) 126.25 mL/min eGFR 111.5 mL/min Glucose 107 mg/dL Osmolality - Calculated 288 mOsm/kg Calcium 9.3 mg/dL Protein, Total 6.5 g/dL Albumin 4.3 g/dL Globulin 2.2 g/dL Bilirubin, Total 0.5 mg/dL ALT (SGPT) 16 U/L AST (SGOT) 15 U/L Alkaline Phosphatase 83 IU/L WBC 5.6 10 3/uL RBC 5.25 10 6/uL HGB 14.6 g/dL HCT 44.8 % MCV 85.3 fl MCH 27.8 pg MCHC 32.6 g/dL RDW 13.0 % Platelet Count 187 10 3/cmm MPV 9.1 fL Neutrophils 3.31 10 3/uL Lymphocytes 1.5 10 3/uL Monocytes 0.5 10 3/uL Eosinophils 0.1 10 3/uL Basophils 0.1 10 3/uL Neutrophil % 59.2 % Lymphocyte % 27.1 % Monocyte % 9.5 % Eosinophil % 2.5 % Basophils % 1.3 % NRBC % 0 % Problem List: 1. 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 2. Type 2 diabetes, diet controlled. 3. He has CT evidence of COPD. 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 He first had CT evidence of a right middle lobe pulmonary nodule in February 2021. The diagnosis was confirmed by CT directed biopsy on 04/04/2021. By PET/CT, his disease appeared to be stage IA (T1a, N0, M0). There was some delay with his further treatment, but he ultimately did proceed to right muscle-sparing thoracotomy with right middle lobectomy on 08/12/2021. By that time his chest CT had shown a slightly enlarged right hilar lymph node. His surgical pathology showed moderately differentiated, nonkeratinizing invasive squamous cell carcinoma measuring 1.2 cm. There was no visceral pleural involvement and the margins were free. There was involvement in 1/3 hilar lymph nodes which measured 2.2 cm and which showed extracapsular extension. Final staging was IIB (T1b, N1, M0). I had seen him for a follow-up visit on 09/18/2021. He was offered the option to have adjuvant chemotherapy, which he declined. At this point he appears to be doing well clinically. His surveillance CT scans on 12/20/2020 showed no evidence of recurrence in the lung/mediastinum, but there was development of new lesions in both right and left hepatic lobes consistent with metastatic disease. The CT findings and images were reviewed with the patient. We discussed the clinical implications. As yet he is not in any way symptomatic, but the probability is very high that he has developed metastatic disease in the liver. He is aware that his disease now is incurable and that any further treatment will just be palliative. He again indicates that he probably would not be willing to take chemotherapy. As there may potentially be options for targeted therapy or immunotherapy, I will now request next generation sequencing, both by liquid biopsy and on the tissue from his lung resection. I will see him again to discuss treatment options when those results are available. Signed By: Darrel Gonsales M.D. <<Signature on File>>
== END 2021-12-26 07:31 | disposition home or self-care (01) ==
PROVIDERS: PCP Family Medicine; Visit Provider Internal Medicine Medical Oncology
DX: C34.81 Malignant neoplasm of overlapping sites of right bronchus and lung (principal); C78.7 Secondary malignant neoplasm of liver and intrahepatic bile duct; E11.9 Type 2 diabetes mellitus without complications; J44.9 Chronic obstructive pulmonary disease, unspecified; Z79.899 Other long term (current) drug therapy
CPT/HCPCS: 36415; 80053; 85025; 99214

== ENCOUNTER → 2022-02-13 11:57 | Outpatient (BNVA) | payer OTHER, SELFPAY | PROVIDERS: PCP Family Medicine; Visit Provider Internal Medicine Medical Oncology | DX: C34.2 Malignant neoplasm of middle lobe, bronchus or lung (principal); C34.81 Malignant neoplasm of overlapping sites of right bronchus and lung; C78.7 Secondary malignant neoplasm of liver and intrahepatic bile duct; Z79.899 Other long term (current) drug therapy; Z87.891 Personal history of nicotine dependence | CPT/HCPCS: 99214 ==

== ENCOUNTER 2022-02-13 11:58 | Oncology outpatient (recurring) (ONCR) | payer OTHER, SELFPAY | END 2022-02-25 23:59 | disposition home or self-care (01) | PROVIDERS: PCP Family Medicine; Visit Provider Internal Medicine Medical Oncology | DX: C34.2 Malignant neoplasm of middle lobe, bronchus or lung (principal); C78.7 Secondary malignant neoplasm of liver and intrahepatic bile duct; F17.290 Nicotine dependence, other tobacco product, uncomplicated; Z79.899 Other long term (current) drug therapy | CPT/HCPCS: 99214; 99999 ==

== ENCOUNTER 2022-03-18 12:22 | Outpatient (CLI) | payer OTHER, SELFPAY ==
--- NOTE | 2022-03-18 14:00 | CT_ITS ---
WS: [id number] CT CHEST, ABDOMEN AND PELVIS WITH CONTRAST. HISTORY: Restaging, liver and lung cancer. TECHNIQUE: Contiguous 5 mm axial imaging performed through the chest, abdomen and pelvis IV contrast, oral contrast has been provided. Coronal and sagittal reformats chest. Coronal and sagittal reformat s through the abdomen and pelvis. All CT scans at [facility] use at least one of these dose o ptimization techniques: automated exposure control; mA and/or kV adjustment per patient size (include s targeted exams where dose is matched to clinical indication); or iterative reconstruction. CONTRAST: Omnipaque 300; 95 mL IV. DLP: 1785.50 mGy.cm COMPARISON: 12/20/2021, 06/28/[address]: Status post RIGHT middle lobectomy. Lungs are hyperinflated with chronic emphysema. Parasep kishor emphysematous changes with stable biapical pleural thickening. No recurrent mass identified withi n the RIGHT lung. There are 2 noncalcified well-circumscribed nodules in the LEFT lower lobe which we re present on 07/22/2019. The largest nodule measures 8 mm. No mediastinal or hilar adenopathy. Surgi david clips at the RIGHT hilum unchanged with no adjacent mass or nodule. Heart size is normal. Moderat e coronary artery atherosclerosis. Enlarged substernal RIGHT thyroid similar to prior studies. Normal size pulmonary artery and aorta. Abdomen CT: Numerous low-attenuation masses throughout the liver have increased in size and number si nce 12/20/2021. Masses within both the RIGHT and LEFT lobes. The largest mass in the RIGHT lobe measur es 3.7 x 4.0 cm. No bile duct dilatation. Gallbladder and spleen are negative. Normal size pancreas. No adrenal mass. Low-attenuation indeterminate 12 mm mass superior pole LEFT kidney. No lymph nodes i n the upper abdomen are ascites. Mild atherosclerosis aorta. Normal enhancement of the mesenteric art eries. Mild central mesenteric misting with a few small lymph nodes. Lymph nodes are subcentimeter an d stable. Moderate distention of the stomach with liquid. No small bowel obstruction. Mild diffuse fecal retent ion and constipation. Numerous diverticula throughout the colon. Pelvic CT: Well-distended urinary bladder. Markedly enlarged prostate gland encroaches into the urina ry bladder. No free fluid or adenopathy. Inguinal canals are patent bilaterally. Lytic well-circumscribed areas in the RIGHT hip. Mild LEFT curvature lumbar spine. No sclerotic bone lesions. Healed fracture RIGHT lateral mid rib. CT/CT chest abd pel w con* IMPRESSION: 1. Progression of metastatic liver disease since the prior study. 2. Status post RIGHT middle lobectomy. No recurrent mass at the surgical site. 3. Long-term stability subcentimeter nodules LEFT lower lobe. 4. No adenopathy in the mediastinum or hilum. 5. Small subcentimeter mesenteric lymph nodes are stable. No ascites or mesent wolf adenopathy appreciated. 6. Extensive diverticulosis. 7. Marked prostate enlargement. 8. Indeterminate LEFT renal mass. Mass will be reevaluated on follow-up examin ations.
[2022-03-18] MEDS: barium sulfate 450 mL Oral Susp PO (14:02)
[2022-03-18 14:06] LABS: Blood Urea Nitrogen 16 mg/dL (8-23)
[2022-03-18] MEDS: iohexol 300 mg/mL 100 mL Btl IV (14:14)
== END 2022-03-18 12:23 | disposition home or self-care (01) ==
LOC: RAD 12:24
PROVIDERS: PCP Family Medicine; Visit Provider Internal Medicine Medical Oncology
DX: C34.2 Malignant neoplasm of middle lobe, bronchus or lung (principal); C34.91 Malignant neoplasm of unspecified part of right bronchus or lung; C78.7 Secondary malignant neoplasm of liver and intrahepatic bile duct; K57.90 Diverticulosis of intestine, part unspecified, without perforation or abscess without bleeding; N40.0 Benign prostatic hyperplasia without lower urinary tract symptoms
CPT/HCPCS: 71260; 74177; 82565; 84520

== ENCOUNTER 2022-03-24 07:12 | Oncology outpatient (recurring) (ONCR) | payer OTHER, SELFPAY ==
[2022-03-24 07:51] LABS: Basophils # 0.1 10^3/uL (0.0-0.1); Basophils % 0.9 %; Eosinophils # 0.2 10^3/uL (0.0-0.8); Eosinophils % 2.3 %; Hemoglobin 14.1 g/dL (11.7-16.6); Lymphocytes # 1.3 10^3/uL (0.8-4.8); Lymphocytes % 20.5 %; Mean Corpuscular HGB Conc 33.6 g/dL (30.0-36.0); Mean Corpuscular Hemoglobin 28.8 pg (28.0-34.0); Mean Corpuscular Volume 85.9 fl (80-94); Mean Platelet Volume 9.5 fL (7.4-10.4); Monocytes # 0.6 10^3/uL (0.2-0.9); Monocytes % 9.2 %; Neutrophils # 4.31 10^3/uL (1.8-7.7); Neutrophils % 66.9 %; Nucleated Red Blood Cells % 0 %; Platelet Count 172 10^3/cmm (130-400); Red Blood Count 4.89 10^6/uL (4.1-5.3); Red Cell Distribution Width 13.7 % (12.1-15.1); White Blood Count 6.4 10^3/uL (4.0-10.0)
[2022-03-24 08:06] LABS: Alanine Aminotransferase 26 U/L (0-41); Albumin Level 4.2 g/dL (3.5-5.2); Alkaline Phosphatase 102 IU/L (40-130); Aspartate Amino Transferase 26 U/L (0-40); Blood Urea Nitrogen 19 mg/dL (8-23); Carbon Dioxide 28 mmol/L (22-29); Chloride 106 mmol/L (98-107); Globulin 2.8 g/dL (1.3-4.6); Glucose 112 mg/dL (65-115); Osmolality Calculated 299 mOsm/kg (285-295); Sodium 143 mmol/L (136-145); Total Bilirubin 0.4 mg/dL (0.15-1.2)
== END 2022-03-27 23:59 | disposition home or self-care (01) ==
PROVIDERS: PCP Family Medicine; Visit Provider Internal Medicine Medical Oncology
DX: C34.2 Malignant neoplasm of middle lobe, bronchus or lung (principal); C78.7 Secondary malignant neoplasm of liver and intrahepatic bile duct; F17.210 Nicotine dependence, cigarettes, uncomplicated
CPT/HCPCS: 80053; 85025; G0463

== ENCOUNTER 2022-04-18 08:36 | Oncology outpatient (recurring) (ONCR) | payer OTHER, SELFPAY | END 2022-04-18 23:59 | disposition home or self-care (01) | PROVIDERS: PCP Family Medicine; Visit Provider Internal Medicine Medical Oncology | DX: C34.2 Malignant neoplasm of middle lobe, bronchus or lung (principal); C78.7 Secondary malignant neoplasm of liver and intrahepatic bile duct; F17.210 Nicotine dependence, cigarettes, uncomplicated; M54.6 Pain in thoracic spine; Z79.891 Long term (current) use of opiate analgesic; Z79.899 Other long term (current) drug therapy | CPT/HCPCS: 72070; 99214 ==

== ENCOUNTER 2022-04-25 09:40 | Oncology outpatient (recurring) (ONCR) | payer OTHER, SELFPAY ==
--- NOTE | 2022-04-21 09:49 | MR_ITS ---
WS: [id number] MRI THORACIC SPINE WITH CONTRAST TECHNIQUE: Sagittal T1, T2 and STIR imaging. Axial T2 imaging. Post gadolinium imaging was obtained. CLINICAL INFORMATION: PAIN IN T SPINE , LUNG CANCER COMPARISON: None. FINDINGS: Mild thoracic curve. Mild thoracic kyphosis. No acute compression. Metastatic lesion involving the RI GHT T5 vertebral body involving the posterior vertebral body extending into the posterior elements an d pedicle. Associated bony expansion with enhancement. Diffuse bony enlargement of the RIGHT transver se process with a small amount of epidural disease and enhancement. Epidural disease eccentric to the RIGHT with mild to moderate central canal stenosis. Thoracic cord is displaced ventrally. Suggestion of a tiny amount of T2 signal abnormality in the thoracic cord at this level. Moderate RIGHT C5-C6 f oraminal narrowing. A few incidental hemangiomas in the mid and lower thoracic spine. Normal caliber thoracic aorta. Part ially visualized hepatic metastasis better visualized on the recent CT. T2 hyperintense RIGHT thyroid nodule measuring 1.7 x 2.0 cm. MR/MR thoracic spine wo/w [id number] IMPRESSION: Some images limited by patient motion. 1. Bony metastatic lesion involving the T5 posterior vertebral body on the RIG HT extending into the pedicle and posterior elements with bony expansion. Mild associated epidural disease with mild to moderate central canal stenosis. 2. Ventral displacement of the thoracic cord at T5 likely due to adhesions ant eriorly. Small amount of T2 signal abnormality in the thoracic cord. Persistent CSF dorsally about the cord. 3. Moderate's RIGHT T5-T6 foraminal narrowing. Notified Darrel Gonsales MD at 04/21/2022 12:18 PM.
--- NOTE | 2022-04-22 | CT_ITS ---
Radiation Therapy Planning CT images; total exam DLP: 618.77 mGy-cm MTDD
--- NOTE | 2022-04-22 12:07 | N.ONRAD NP_ITS ---
Radiation Oncology New Patient Visit Patient: Darian Betancourt MR#: [id number] : 1950> Age: 72> Sex: Male> Dictated by: Dr. Rustam Stephens Date of Service: 04/22/2022 Referring Physician(s) : Diagnosis: C78.7 - secondary malignant neoplasm of liver and intrahepatic bile duct, Diagnosed 12/26/2021 (active) and C34.2 - malignant neoplasm of middle lobe, bronchus or lung, Diagnosed 09/18/2021 (active), stage iib, t1b, n1, m0. Radiotherapy to date: Summary > No prior radiation therapy. Chief Complaint / History of Present Illness: Mr. Betancourt is a 72-year-old man who has metastatic carcinoma of the lung involving the liver and bone. He declined active treatment in view of the poor prognosis. He was recently seen with a new complaint of back pain which is progressively worsening. He underwent imaging and was found to have a metastatic lesion involving the right aspect of the T5 vertebral body with extension to the pedicle and the posterior elements. There was a small amount of epidural extension with some stenosis of the canal. There was significant narrowing of the T5-T6 neural foramen on the right. He does state that the pain radiates to the right along the rib under the right scapula and under his right arm. The pain is having a significant impact on his quality of life and he is referred for palliative radiation. Current Medications: A Thru Z Advanced Adult, cholecalciferol, cinnamon, selenium, vitamin C, vitamin E, zinc. Allergies: No Known Allergies Medical History: CT evidence of COPD, type II diabetes, diet controlled. No history of collagen vascular disease. No previous radiation therapy. Surgical History: CT directed biopsy of right lung on 04/04/2021 and excision of sebaceous cysts. Family History: Father at 95 of old age. Mother of colon cancer at age 86. She also had diabetes. A brother of lung cancer at age 63. Two sisters are still living. A maternal aunt had breast cancer and his paternal grandfather had throat cancer. Social History: Last screened on 12/26/2021 - Current some day smoker. Contact indicated with the following hazardous materials: asbestos. Patient indicated use of the following products: pipe. Current Complaints / Review of Systems: . Vital Signs: Performed on 04/22/2022 10:00 AM BMI - 23.858 kg/m2 (high), Height - 76 in, Weight - 196 lbs, Temperature - 98.3 f, Pulse - 67 /min, Respiration - 18 /min, O2 Sat - 96 %, Pain - 5, Fatigue - 0 and BP - 127/ 69 mm(hg). Physical Exam: General: Alert, oriented, no acute distress. Neck: Supple. No masses. No cervical or supraclavicular lymphadenopathy. Lungs: Clear to percussion. On auscultation no rales rhonchi or wheezes. Heart: Regular rhythm. No murmur, gallop, or rub. Abdomen no distention. No tenderness, mass or organomegaly. I did not detect the masses in his liver. Musculoskeletal. To palpation he has tenderness in the mid thoracic spine area. Percussion does not elicit the pain. No other areas of bone tenderness. He is ambulatory without assistance. Performance Status: ECOG 2 Pathology: Primary, c78.7 - secondary malignant neoplasm of liver and intrahepatic bile duct, Diagnosed 12/26/2021 (active) and Primary, c34.2 - malignant neoplasm of middle lobe, bronchus or lung, Diagnosed 09/18/2021 (active) stage iib, t1b, n1, m0. Lab: Test performed on 12/26/2021 8:10 AM [facility] - 27.8 pg (low) and Protein, Total - 6.5 g/dl (low). Imaging: See HPI Impression: Symptomatic lung cancer metastasis to T5 with radicular pain extending along the fifth rib. There is evidence of epidural disease and stenosis of the spinal canal as well as the T5-T6 neural foramen. Mr. Betancourt he is a candidate for palliative radiation. I also suggested that we put him on steroids. I will put him on dexamethasone 4 mg 3 times daily with food and begin tapering after 1 week. I discussed a 2-week course of treatment. No permanent side effects anticipated but he likely will get a sore throat. That was discussed. Plan: Simulation performed. Signed by: 04/22/2022 12:06:18 PM <<Signature on File>> Time spent with patient: CPT Code: CPT Code:
== END 2022-04-27 23:59 | disposition home or self-care (01) ==
PROVIDERS: Absent Provider Internal Medicine Medical Oncology; PCP Family Medicine; Visit Provider Specialist
DX: Z51.0 Encounter for antineoplastic radiation therapy (principal); C34.2 Malignant neoplasm of middle lobe, bronchus or lung
CPT/HCPCS: 72157; 77290; 77295; 77300; 77334; 77387; 77412; 99204

== ENCOUNTER 2022-05-08 09:48 | Oncology outpatient (recurring) (ONCR) | payer OTHER, SELFPAY ==
--- NOTE | 2022-04-28 10:54 | ONCRAD TMN_ITS ---
Radiation Oncology Treatment Management Note Patient Name: Darian Betancourt Date of : 1950 Date of Service: 04/28/2022 Attending Physician: Calvin Solis M.D. Darian Betancourt is a 72 year old white male diagnosed with metastatic non-small cell lung cancer The patient has received 9 Gy of a prescribed 30 Victor to T5 with a 3-dimensional conformal radiotherapy plan utilizing an AP port and wedge pair treatment so. Upon review of systems, he reported improvement in his back pain. On physical examination, the patient weighed 191 lbs. His temperature was 98.1 ???F and the blood pressure was 125/76 mmHg. His pulse was 61 bpm and the respiratory rate was 18. No erythema was present within the skin. Continue palliative radiotherapy as prescribed. Signed by: Dr. Calvin Solis 04/28/2022 10:52:48 AM
--- NOTE | 2022-05-05 10:44 | ONCRAD TMN_ITS ---
Radiation Oncology Treatment Management Note Patient Name: Darian Betancourt Date of : 1950 Date of Service: 05/05/2022 Attending Physician: Calvin Solis M.D. Darian Betancourt is a 72 year old white male diagnosed with metastatic non-small cell lung cancer The patient has received 21 Gy of a prescribed 30 Victor to T5 with a 3-dimensional conformal radiotherapy plan utilizing an AP port and wedge pair treatment so. Upon review of systems, he reported continued improvement in his back pain. On physical examination, the patient weighed 185 lbs. His temperature was 96.8 ???F and the blood pressure was 111/70 mmHg. His pulse was 78 bpm and the respiratory rate was 16. No erythema was present within the skin. Continue palliative radiotherapy as planned. Signed by: Dr. Calvin Solis 05/05/2022 10:43:04 AM
--- NOTE | 2022-05-08 10:02 | N.ONRD TS_ITS ---
Radiation OncologyTreatment Summary Patient Name: Darian Betancourt Date of : 1950 Date of Service: 05/08/2022 Attending Physician: Calvin Solis M.D. Darian Betancourt has completed palliative radiotherapy for the management of metastatic non-small cell lung cancer. Daily radiotherapy was administered between the dates of April 24, 2022 through May 08, 2022. A prescribed dose of 30 Gy was delivered in 10 fractions encompassing 15 elapsed days. Eduardo was treated with a 3-dimensional conformal radiotherapy plan with an AP field and a LPO/RPO wedge pair. The AP field utilized a 0??? gantry angle with a collimator angle of 0???. The field size measured 5.7 cm x 5.2 cm within the X-direction and 4.7 cm x 5.7 cm within the Y-direction. The SSD measured 85.3 cm with the field delivering 73 monitor units. The LPO port employed a gantry angle of 145??? and a collimator angle of 90???. The field size spanned 3.8 cm x 3.6 cm within X-direction and 6.2 cm x 6.2 cm within the Y-direction. The SSD was 93.7 cm with the field allocating 205 monitor units. An enhanced dynamic wedge 60??? was incorporated. The RPO field was designed with a gantry angle of 215??? with a collimator angle of 90???. The measured field size was 3.8 cm x 3.6 cm within the X-direction and 4.7 cm x 5.7 cm within the Y-direction. The measured SSD was 93.4 cm with the field apportioning 173 monitor units. A 45??? enhanced dynamic wedge was implemented. All treatments were performed with the Bizak linear accelerator and an isocentric technique. The dose was calculated by Anisotropic Analytic Algorithm. A photon energy of 15 MV was prescribed with the plan normalized to deliver 100% of the prescription dose to 95% of the planning target volume. The plan was designed and approved by the [facility] physician. Signed by: Dr. Calvin Solis 05/08/2022 10:00:48 AM
== END 2022-05-28 23:59 | disposition home or self-care (01) ==
PROVIDERS: Absent Provider Radiology Radiation Oncology; PCP Family Medicine; Visit Provider Radiology Radiation Oncology
DX: Z51.0 Encounter for antineoplastic radiation therapy (principal); C34.90 Malignant neoplasm of unspecified part of unspecified bronchus or lung; F17.290 Nicotine dependence, other tobacco product, uncomplicated
CPT/HCPCS: 77336; 77387; 77412

== ENCOUNTER 2022-06-25 12:32 | Oncology outpatient (recurring) (ONCR) | payer OTHER, SELFPAY ==
--- NOTE | 2022-06-18 08:04 | CT_ITS ---
WS: [id number] CT CHEST, ABDOMEN AND PELVIS WITH CONTRAST HISTORY: lung cancer with liver mets TECHNIQUE: Contiguous 5 mm axial imaging performed through the chest, abdomen and pelvis with IV cont rast, oral contrast has been provided. Coronal and sagittal reformats chest. Coronal and sagittal ref ormats through the abdomen and pelvis. All CT scans at [facility] use at least one of these d ose optimization techniques: automated exposure control; mA and/or kV adjustment per patient size (in cludes targeted exams where dose is matched to clinical indication); or iterative reconstruction. CONTRAST: Omnipaque 350; 95 mL IV. DLP: 1765.28 mGy.cm COMPARISON: 03/18/2022 and 12/20/[address]: Centrilobular emphysema with hyperinflated lungs. Biapical scarring and fibrosis is stable. Single new pulmonary nodule is noted within the anterior medial LEFT upper lobe measuring 5 mm abutt ing the pericardial fat on image 46 of series 5. The 2 previously described noncalcified nodules in t he LEFT lower lobe have not significantly changed in size. There is a focal area of scarring in the m edial LEFT lower lobe which is stable. RIGHT hilar lymph node measures 11 mm without increase in size. Smaller amount of lymphoid tissue at the LEFT hilar region. Interlobar 10 mm lymph node is unchanged. Heart size is normal. No pericardial or pleural effusion. Enlarged nodular RIGHT thyroid is unchanged. Abdomen CT: Significant progression of metastatic lesions throughout the liver. Large confluent lesio n in the RIGHT lobe measures 6.4 x 5.8 x 11.0 cm. This is multiple lesions which have coalesced. Nume ana lesions throughout the LEFT lobe with multiple small subcentimeter nodules throughout the liver which are new. No bile duct dilatation. No portal vein thrombosis. Metastatic lesions are closely ass ociated with the main and RIGHT portal vein. Mildly contracted gallbladder. Negative spleen. Negative pancreas. No pancreatic duct dilatation. No adrenal mass. Low-attenuation nodule in the upper pole LEFT kidney slightly bulges beyond the contour. Nodule measu res 1.6 x 1.9 cm. This was not present on prior study of 06/28/2021. Slightly increased in size since 03/18/2022. Possibility of a renal neoplasm or metastatic site needs to be considered. Atherosclerosis aorta. No ascites. No new or increasing size of lymph nodes. No GI tract obstruction. Numerous diverticula t hroughout the colon. No evidence for acute diverticulitis. Pelvic CT: No free fluid or adenopathy. Fat-containing inguinal canals. Prostate gland is enlarged an d heterogeneous. Prostate encroaches into the urinary bladder No lytic or sclerotic lesions are new or identified since the prior studies. CT/CT chest abd pel w con* IMPRESSION: 1. Significant progression of hepatic metastatic disease since the prior study . 2. Single, new LEFT upper lobe 5 mm pulmonary nodule. 3. Previously described LEFT lung nodules are stable. 4. No metastatic lesions in the adrenal glands. 5. Possible solid mass upper pole LEFT kidney measures 1.6 x 1.9 cm. This nodu le is new since 06/28/2021. This can be evaluated for increase in size on additi onal follow-up CT evaluations. May be too small to visualize by ultrasound. 6. No adenopathy within the abdomen and pelvis. 7. Stable RIGHT thyroid nodules. 8. Diverticulosis without acute diverticulitis. 9. Prostate enlargement and heterogeneity.
[2022-06-18] MEDS: barium sulfate 450 mL Oral Susp PO (08:21)
[2022-06-18 08:36] LABS: Basophils # 0.1 10^3/uL (0.0-0.1); Basophils % 1.1 %; Eosinophils # 0.1 10^3/uL (0.0-0.8); Eosinophils % 1.8 %; Hematocrit 42.9 % (42.0-52.0); Hemoglobin 14.1 g/dL (11.7-16.6); Lymphocytes # 0.8 10^3/uL (0.8-4.8); Lymphocytes % 12.4 %; Mean Corpuscular HGB Conc 32.9 g/dL (30.0-36.0); Mean Corpuscular Volume 88.1 fl (80-94); Mean Platelet Volume 9.6 fL (7.4-10.4); Monocytes # 0.7 10^3/uL (0.2-0.9); Monocytes % 10.5 %; Neutrophils # 4.63 10^3/uL (1.8-7.7); Neutrophils % 73.7 %; Nucleated Red Blood Cells % 0 %; Platelet Count 196 10^3/cmm (130-400); Red Blood Count 4.87 10^6/uL (4.1-5.3); Red Cell Distribution Width 12.7 % (12.1-15.1); White Blood Count 6.3 10^3/uL (4.0-10.0)
[2022-06-18 08:56] LABS: Alanine Aminotransferase 78 U/L (0-41); Alkaline Phosphatase 149 U/L (40-130); Anion Gap 13.3 (5-19); Aspartate Amino Transferase 59 U/L (0-40); Blood Urea Nitrogen 14 mg/dL (8-23); Calcium 9.6 mg/dL (8.5-10.5); Carbon Dioxide 27 mmol/L (22-29); Chloride 101 mmol/L (98-107); Globulin 2.6 g/dL (1.3-4.6); Glucose 126 mg/dL (65-115); Osmolality Calculated 286 mOsm/kg (285-295); Potassium 4.3 mmol/L (3.5-5.1); Sodium 137 mmol/L (136-145); Total Bilirubin 0.5 mg/dL (0.15-1.2); Total Protein 6.6 g/dL (6.6-8.7)
[2022-06-18] MEDS: iohexol 350 mg/mL 100 mL Btl IV (09:40)
== END 2022-06-27 23:59 | disposition home or self-care (01) ==
PROVIDERS: Absent Provider Radiology Radiation Oncology; PCP Family Medicine; Visit Provider Internal Medicine Medical Oncology
DX: C78.7 Secondary malignant neoplasm of liver and intrahepatic bile duct (principal); C34.90 Malignant neoplasm of unspecified part of unspecified bronchus or lung; F17.290 Nicotine dependence, other tobacco product, uncomplicated; C79.51 Secondary malignant neoplasm of bone; Z92.3 Personal history of irradiation
CPT/HCPCS: 71260; 74177; 80053; 85025; 99214

== ENCOUNTER 2022-07-16 13:43 | Oncology outpatient (recurring) (ONCR) | payer OTHER, SELFPAY | END 2022-07-28 23:59 | disposition home or self-care (01) | LOC: ONCMED 13:44 | PROVIDERS: PCP Family Medicine; Visit Provider Internal Medicine Medical Oncology | DX: C34.2 Malignant neoplasm of middle lobe, bronchus or lung (principal); C78.7 Secondary malignant neoplasm of liver and intrahepatic bile duct; C79.51 Secondary malignant neoplasm of bone; G89.3 Neoplasm related pain (acute) (chronic); Z79.891 Long term (current) use of opiate analgesic; F17.210 Nicotine dependence, cigarettes, uncomplicated; Z90.2 Acquired absence of lung [part of] | CPT/HCPCS: 99214; 99215 ==